=== PATIENT | female | born 1980 | race Caucasian/White ===

== ENCOUNTER 2017-05-09 11:22 | Inpatient (IN) | payer BC ==
[~2017-05-09] VITALS: Ht 167.6 cm; Wt 66.3 kg
[2017-05-09 12:18] LABS: URINE APPEARANCE CLOUDY (CLEAR); URINE BILIRUBIN NEG (NEG); URINE COLOR DK YELLOW; URINE EPITHELIAL CELL AUTO >30 /lpf (0-5); URINE NITRITE NEG (NEG); URINE SPECIFIC GRAVITY 1.026 (1.000-1.030); UROBILINOGEN NEG (NEG); ZZUR CULT IF INDIC CLEAN CATCH NO
[2017-05-09 12:20] LABS: MANUAL MICROSCOPIC REQUIRED? NO; REVIEW REQ? YES
[2017-05-09 12:33] LABS: BASO % 0.2 %; BASO ABS # 0.01 K/uL (0-0.2); COMPLETE YES; EOS % 0.3 %; HEMATOCRIT 45.8 % (37-47); IG% 0.2 %; LYMPH % 18.2 %; LYMPH ABS # 1.21 K/uL (1.2-3.4); MEAN CELL VOLUME 89.6 fL (80-100); MEAN CORPUSCULAR HEMOGLOBIN 30.7 pg (25-34); MEAN CORPUSCULAR HGB CONC 34.3 g/dl (32-36); MEAN PLATELET VOLUME 10.3 fL (7.4-10.4); MONO % 9.2 %; NEUT % 71.9 %; PLATELET COUNT 301 K/uL (130-400); RED BLOOD COUNT 5.11 M/uL (4.2-5.4); WHITE BLOOD COUNT 6.64 K/uL (4.8-10.8)
[2017-05-09 12:38] LABS: URINE MUCUS PRESENT (NONE PRSENT)
[2017-05-09 12:52] LABS: BENZODIAZEPINE, URINE NEG (NEG); COCAINE,URINE NEG (NEG); PHENCYCLIDINE, URINE NEG (NEG)
[2017-05-09 12:53] LABS: BUN/CREATININE RATIO 10.2 (10-20); CALCIUM 9.3 mg/dl (8.5-10.1); CREATININE 1.28 mg/dl (0.60-1.20); POTASSIUM 3.8 mmol/L (3.5-5.1)
[2017-05-09 12:55] LABS: ACETAMINOPHEN < 2 ug/ml (10-30)
[2017-05-09 13:04] LABS: ALB/GLOB RATIO 1.3 (0.9-2); THYROID STIMULATING HORMONE 2.05 uIu/ml (0.300-4.500)
[2017-05-09] MEDS ORDERED: BUPRTAB51 PO (14:16)
[2017-05-09] MEDS ORDERED: NURSING VERBAL MED ORDER ONE (14:30)
[2017-05-09 15:05] VITALS: O2SAT 97
[2017-05-09] MEDS ORDERED: ACETAMINOPHEN 325 MG TAB PO PRN (15:30)
[2017-05-09] MEDS ORDERED: ALUMINUM/MAGNESIUM SUSP 30 ML UDC PO PRN (15:30)
[2017-05-09] MEDS ORDERED: hydrOXYzine HCL 25 MG TAB PO PRN ×2 (15:30)
[2017-05-09] MEDS ORDERED: BISMUTH SUBSALICYLATE PER ML OMNICELL CHARGE PO PRN (15:30)
[2017-05-09] MEDS ORDERED: SODIUM CHLORIDE 0.65% NA SOLN 45 ML (OCEAN) PRN (15:30)
[2017-05-09] MEDS ORDERED: MAGNESIUM HYDROXIDE SUSP 30 ML UDC PO PRN (15:30)
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
[2017-05-09 17:03] VITALS: BP 131/88; PULSE 96; TEMP 36.8; Ht 167.6 cm; Wt 66.3 kg
[2017-05-10 06:51] VITALS: BP_SYST 105; BP_SYST 108; BP_DIAS 66; BP_DIAS 71; PULSE 82; PULSE 94; TEMP 36.9
[2017-05-10] MEDS: BuPROPion XL 300 MG TABCR PO SCH (08:44)
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
[2017-05-10] MEDS ORDERED: SERTRALINE HCL 50 MG TAB PO ONE (14:30)
[2017-05-11 06:48] VITALS: BP_SYST 116; BP_SYST 93; BP_DIAS 63; BP_DIAS 80; PULSE 81; PULSE 86; TEMP 36.9
[2017-05-11] MEDS: BuPROPion XL 300 MG TABCR PO SCH (09:19)
[2017-05-11] MEDS: SERTRALINE HCL 50 MG TAB PO SCH (09:19)
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
[2017-05-12 06:40] VITALS: BP_SYST 101; BP_SYST 106; BP_DIAS 67; BP_DIAS 69; PULSE 64; PULSE 76; TEMP 36.2
[2017-05-12] MEDS: BuPROPion XL 300 MG TABCR PO SCH (08:39)
[2017-05-12] MEDS: SERTRALINE HCL 50 MG TAB PO SCH (08:39)
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
[2017-05-13 06:54] VITALS: BP_SYST 109; BP_DIAS 68; BP_DIAS 69; PULSE 70; PULSE 97; TEMP 36.9
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
[2017-05-13] MEDS: SERTRALINE HCL 50 MG TAB PO SCH (08:50)
[2017-05-13] MEDS: BuPROPion XL 300 MG TABCR PO SCH (08:50)
[2017-05-14 07:11] VITALS: BP_SYST 101; BP_SYST 109; BP_DIAS 67; BP_DIAS 69; PULSE 66; PULSE 89; TEMP 36.8
[2017-05-14] MEDS: BuPROPion XL 300 MG TABCR PO SCH (08:35)
[2017-05-14] MEDS ORDERED: SERTRALINE HCL 100 MG TAB PO SCH (09:00)
[2017-05-14] MEDS ORDERED: ZLF/100 PO (11:52)
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
[2017-05-14 18:39] LABS: SYNTHETIC CANNABINOIDS QL URIN NEGATIVE (Negative)
== END 2017-05-14 16:15 | disposition home or self-care (01) | DRG 885 ==
LOC: C.EDB 11:24 → C.MHU 14:24
PROVIDERS: ADMIT Psychiatry & Neurology Psychiatry; ATTEND Psychiatry & Neurology Psychiatry
DX: F33.2 Major depressive disorder, recurrent severe without psychotic features (principal); R45.851 Suicidal ideations; F43.10 Post-traumatic stress disorder, unspecified; F10.20 Alcohol dependence, uncomplicated; Z79.899 Other long term (current) drug therapy

== ENCOUNTER 2017-05-15 17:47 | Emergency (ER) | payer BC ==
[~2017-05-15] VITALS: Ht 167.6 cm; Wt 66.7 kg
[~2017-05-15 17:47] MED LIST: BUPRTAB51 PO; ZLF/100 PO
[2017-05-15 18:03] VITALS: TEMP 36.8; Ht 167.6 cm; Wt 66.7 kg
--- NOTE | 2017-05-15 18:56 | EMERGENCY ROOM VISIT NOTE ---
History Report prepared by Lobo: Vinh Parsons Under the Supervision of: Dr. Audrey Rodriguez D.O. First contact with patient: 18:09 Chief Complaint: MENTAL HEALTH EVALUATION Stated Complaint: ANXIETY DEPRESSION History of Present Illness The patient is a 36 year old female who presents to the Emergency Room with complaints of worsening anxiety beginning yesterday. Case management states the patient was discharged from [facility] yesterday. They report the patient called back today and asked if she could have a work note for more days off. Case management notes the patient clams she is too anxious and will come to the ED to receive her note. The patient states she was originally supposed to be discharged today, but her insurance ran out, so she was discharged yesterday. She reports her early discharged provoked a large amount of anxiety. The patient notes she woke up this morning with a lot of anxiety and was not in a state where she could go back to work. She states her plan was to go back to work tomorrow, and she was off for three days. The patient reports she was told, at the time of discharge, to become involved with the community because she is new to the area. She notes she has a psychiatrist appointment in three weeks and a therapy appointment in five weeks. The patient states she is trying to get together with a friend on her days off. She reports she told her doctor she was not doing well, and they told her she needed an appointment. The patient notes she went to [facility], and she sat in a chair avoiding her medication. She states she does not know if she will benefit from hospitalization, and she knows she does not need to be alone because she lives alone. The patient reports she knows the idea of work is not possible. She notes she would have work of in 2 days and will try going to work in three days. The patient states she is not suicidal or trying to hurt herself , and she wants to stay like that. She reports she knows it will eventually get to the point. The patient notes she was not told how to cope with her anxiety because her treatment was focused on her depression. She denies medication side effects, and she is currently taking Zoloft 100HCl for anxiety. The patient denies suicidal ideations, homicidal ideations, and hallucinations Source of History: patient, other (case managment) Onset: yesterday Position: other (global) Quality: other (anxiety) Timing: worsening Note: Denies: suicidal ideation, homicidal ideations, hallucinations Review of Systems See HPI for pertinent positives & negatives. A total of 10 systems reviewed and were otherwise negative. Past Medical & Surgical Medical Problems: (1) Alcohol use disorder (2) Depression (3) diphenhydramine abuse (4) Major depressive disorder, recurrent severe without psychotic features (5) no pertinent medical problems (6) Past Psych Meds (7) PTSD (post-traumatic stress disorder) (8) Suicide attempt Family History Diabetes mellitus FH: breast cancer Gallbladder disease Heart disease Hypertension Kidney disease Kidney stones Seizures Social History Smoking Status: Current Every Day Smoker Marital Status: single Housing Status: lives alone Current/Historical Medications Scheduled Bupropion (Wellbutrin-Xl), 300 MG PO DAILY Sertraline HCl (Sertraline HCl), 100 MG PO QAM Allergies Coded Allergies: Sulfa Antibiotics (Unverified Allergy, Unknown, UNKNOWN, 05/15/17) Physical Exam Vital Signs Date Time Temp Pulse Resp B/P (MAP) Pulse Ox O2 Delivery O2 Flow Rate FiO2 05/15/17 20:21 80 18 127/85 98 05/15/17 18:38 170/99 05/15/17 18:03 36.8 98 20 96 Room Air Physical Exam GENERAL: alert, anxious-appearing, well nourished, tearful, non-toxic EYE EXAM: normal conjunctiva, PERRL and EOM's grossly intact OROPHARYNX: no exudate, no erythema, lips, buccal mucosa, and tongue normal and mucous membranes are moist NECK: supple, no nuchal rigidity, no adenopathy, non-tender LUNGS: Clear to auscultation. Normal chest wall mechanics HEART: no murmurs, S1 normal and S2 normal ABDOMEN: abdomen soft, non-tender, normo-active bowel sounds, no masses, no rebound or guarding. BACK: Back is symmetrical on inspection and there is no deformity, no midline tenderness, no CVA tenderness. SKIN: no rashes and no bruising UPPER EXTREMITIES: upper extremities are grossly normal. LOWER EXTREMITIES: No pitting edema. NEURO EXAM: Normal sensorium, cranial nerves II-XII grossly intact, normal speech, no gross weakness of arms, no gross weakness of legs. PSYCH: No SI. No HI. No hallucinations. Medical Decision & Procedures ED Course 1839: The patient was evaluated in room A06. A complete history and physical exam was performed. 193: Case management informed me the patient is cleared. She is ready for discharge. Medical Decision Differential diagnosis: Etiologies such as mood disorder, infection, hypoglycemia, electrolyte abnormalities, cardiac sources, intracerebral event, toxicologic, neurologic, as well as others were entertained. I do not feel patient's eminent danger to herself or others. Patient otherwise hemodynamically stable. No physical complaints. Medication Reconcilliation Current Medication List: was personally reviewed by me Impression Primary Impression: Acute anxiety Additional Impression: Depression Scribe Attestation The scribe's documentation has been prepared under my direction and personally reviewed by me in its entirety. I confirm that the note above accurately reflects all work, treatment, procedures, and medical decision making performed by me. Departure Information Dispostion Home / Self-Care Referrals Yemi Diaz MD (PCP) Forms HOME CARE DOCUMENTATION FORM, IMPORTANT VISIT INFORMATION Patient Instructions My [facility] Additional Instructions Please keep your appointments with your therapist and psychiatrist. Please continue your medications as prescribed. Please continue the coping mechanisms your previously instructed on. If you feel worse in any way, begin to have thoughts of wanting to hurt herself or someone else, or have any other new concerns, please return the emergency room. Problem Qualifiers Additional Impression: Depression Depression Type: unspecified Qualified Codes: F32.9 - Major depressive disorder, single episode, unspecified
[2017-05-15 20:21] VITALS: BP 127/85; PULSE 80; O2SAT 98
== END 2017-05-15 20:22 | disposition home or self-care (01) ==
LOC: C.EDB 17:48 → C.EDA 20:22
DX: F41.8 Other specified anxiety disorders (principal); F43.10 Post-traumatic stress disorder, unspecified; Z91.5 Personal history of self-harm; F17.200 Nicotine dependence, unspecified, uncomplicated; Z83.3 Family history of diabetes mellitus; Z83.79 Family history of other diseases of the digestive system; Z84.1 Family history of disorders of kidney and ureter; Z82.0 Family history of epilepsy and other diseases of the nervous system

== ENCOUNTER → 2017-07-09 | Outpatient (CLI) | payer BC ==
--- NOTE | 2017-07-09 15:52 | MAMMOGRAPHY REPORT ---
BILATERAL FIRST EVER DIGITAL SCREENING MAMMOGRAM TOMOSYNTHESIS WITH CAD: 07/09/2017 CLINICAL HISTORY: Baseline examination. Patient has no complaints. TECHNIQUE: Breast tomosynthesis in addition to standard 2D mammography was performed. Current study was also evaluated with a Computer Aided Detection (CAD) system. COMPARISON: No prior exams were available for comparison. BREAST COMPOSITION: The tissue of both breasts is heterogeneously dense, which may obscure small mas ses. FINDINGS: No suspicious masses, calcifications, or areas of architectural distortion are noted in ei ther breast. Scattered bilateral benign-appearing calcifications are noted. IMPRESSION: ACR BI-RADS CATEGORY 2: BENIGN There is no mammographic evidence of malignancy. A 1 year screening mammogram is recommended. The pa tient will receive written notification of the results. Approximately 10% of breast cancers are not detected with mammography. A negative mammographic report should not delay biopsy if a clinically suggestive mass is present. Kristyn Davidson M.D. /:07/09/2017 12:27:45 Cash Register Repairer: Charlette Chan, [facility] letter sent: Normal 1/2 BI-RADS Code: ACR BI-RADS Category 2: Benign
== END | disposition home or self-care (01) ==
LOC: C.MAMM 10:44
PROVIDERS: ATTEND Nurse Practitioner Family
DX: Z12.31 Encounter for screening mammogram for malignant neoplasm of breast (principal); Z80.3 Family history of malignant neoplasm of breast

== ENCOUNTER 2017-12-31 16:34 | Inpatient (IN) | payer BC ==
[~2017-12-31] VITALS: Ht 167.6 cm; Wt 68.8 kg
[2017-12-31] MEDS ORDERED: LORAZEPAM 1 MG TAB PO PRN (17:00)
--- NOTE | 2017-12-31 17:01 | EMERGENCY ROOM VISIT NOTE ---
History Report prepared by Lobo: Blayne Ansari Under the Supervision of: Dr. Ronaldo Ward D.O. First contact with patient: 16:35 Stated Complaint: MHID History of Present Illness The patient is a 37 year old female who presents to the Emergency Room via police with complaints of worsening depressive symptoms that began 5 weeks ago. Police state [employer] called them after the Sinha called them to perform a wellness check on the patient. Police state when they showed up at the patient' s home, the patient informed them that she tried to commit suicide yesterday by attaching a hose to her exhaust pipe and turning on her car. Police state the plan did not work because the car short-circuited. Police add that the patient tried to commit suicide today at her home but the cleaning crew was there. They add the patient broke down crying because the cleaning crew wouldn't leave. Police state the patient currently rents a home. Police state the patient recently quit her job at the [employer] after working there for 4 years. They state the patient states "she no longer has sympathy for people and is just going through the motions" at work. Police add the patient left letters for family members. Patient states she was recently living in an apartment whose landlord told her to move out in Mid-August. She states the move was upsetting because the landlord "renovated the place". She adds the landlord wanted her to move because the landlord's health was deteriorating and she wanted family to move in. Patient states she was also upset because the landlord made it seem more urgent than it was. Patient states the move was stressful because she had to move within a month. Patient states she does not like her roommates at her current apartment. She states she does not have any friends. Patient states she should would sometimes stay in the parking lot after work at the [employer] " crying for an hour". Patient adds that she has lost some of her friends recently. She states she lost a close friend recently which was "the hardest part" and after that she thought "what's the point" of living. Patient states yesterday afternoon she "took a bunch of Melatonin". She adds she had a scarf around her neck and was going to hang it from a pullup bar. She adds she put a trash bag over her head and fell asleep. She states she then woke up still breathing. Patient adds she sent the Sinha a letter of resignation with her name andrew, valentin marshall, and note saying "sorry for inconvenience but I can no longer provide excellent service". Patient states she also sent the letter of resignation to another person. Patient states she does not know who called police to come check on her. Patient states she took "5-6 500mg Tylenol" 2 hours ago. Patient states she was admitted for mental health in April here. She adds she was admitted in [place] in 2014 from job burn-out. She states she has been admitted previously for exploitive relationships. Patient states she stopped taking her medications in October. She states she is supposed to be taking Zoloft. Patient denies any other medical history or past surgeries. She denies using drugs or smoking. She states she is careful about her alcohol consumptions. Patient adds she is just coming off her last menstrual period. She states she wants to be admitted. Source of History: patient, police, nursing staff (manager of application development) Onset: 5 weeks ago Position: head Timing: worsening Modifying Factors (Worsening): other (Moving; losing friends) Modifying Factors (Relieving): other (None) Note: Positive SI. Review of Systems See HPI for pertinent positives & negatives. A total of 10 systems reviewed and were otherwise negative. Past Medical & Surgical Medical Problems: (1) Alcohol use disorder (2) Depression (3) diphenhydramine abuse (4) Major depressive disorder, recurrent severe without psychotic features (5) no pertinent medical problems (6) Past Psych Meds (7) PTSD (post-traumatic stress disorder) (8) Suicide attempt Family History Diabetes mellitus FH: breast cancer Gallbladder disease Heart disease Hypertension Kidney disease Kidney stones Seizures Social History Smoking Status: Former Smoker Marital Status: single Housing Status: lives alone Occupation Status: unemployed Current/Historical Medications No Active Prescriptions or Reported Meds Allergies Coded Allergies: Sulfa Antibiotics (Unverified Allergy, Unknown, UNKNOWN, 12/31/17) Physical Exam Vital Signs Date Time Temp Pulse Resp B/P (MAP) Pulse Ox O2 Delivery O2 Flow Rate FiO2 12/31/17 16:54 99 18 143/97 99 Room Air Physical Exam GENERAL: Patient is awake, alert, laughing inappropriately, and in no acute distress. Patient is resting comfortably and somewhat anxious-appearing EYES: The conjunctivae are clear. The pupils are round and reactive. EARS, NOSE, MOUTH AND THROAT: The nose is without any evidence of any deformity. Mucous membranes are moist. Tongue is midline NECK: The neck is nontender and supple. RESPIRATORY: Normal respiratory effort is noted. There is no evidence of wheezing rhonchi or rales to auscultation. CARDIOVASCULAR: Regular rate and rhythm noted. There no murmurs rubs or gallops normal S1 normal S2 GASTROINTESTINAL: The abdomen is soft. Bowel sounds are present in all quadrants. Abdomen is nontender. MUSCULOSKELETAL/EXTREMITIES: There is no evidence of gross deformity. Full range of motion is noted in the hips and shoulders. SKIN: There is no obvious evidence of any rash. There are no petechiae, pallor or cyanosis noted. NEUROLOGIC: Patient is awake alert and oriented x3. Strength is symmetric. Patellar reflexes are 2+ bilaterally. PSYCH: Patient appears anxious and guarded. Poor eye contact. Currently admits to SI and admits to actions discussed with us and police. Admits to taking Tylenol 2 hours ago. Medical Decision & Procedures Laboratory Results 12/31/17 17:31 Red Blood Count 4.88, Mean Corpuscular Volume 89.8, Mean Corpuscular Hemoglobin 29.7, Mean Corpuscular Hemoglobin Concent 33.1, Mean Platelet Volume 10.8, Neutrophils (%) (Auto) 67.5, Lymphocytes (%) (Auto) 22.2, Monocytes (%) (Auto) 8.6, Eosinophils (%) (Auto) 1.1, Basophils (%) (Auto) 0.4, Neutrophils # (Auto) 3.53, Lymphocytes # (Auto) 1.16, Monocytes # (Auto) 0.45, Eosinophils # (Auto) 0.06, Basophils # (Auto) 0.02 12/31/17 17:31 Test 12/31/17 16:40 12/31/17 17:31 12/31/17 18:55 Urine Color DK YELLOW Urine Appearance CLOUDY (CLEAR) Urine pH 5.0 (4.5-7.5) Urine Specific Forks 1.034 (1.000-1.030) Urine Protein TRACE (NEG) Urine Glucose (UA) NEG (NEG) Urine Ketones TRACE (NEG) Urine Occult Blood 2+ (NEG) Urine Nitrite NEG (NEG) Urine Bilirubin NEG (NEG) Urine Urobilinogen NEG (NEG) Urine Leukocyte Esterase NEG (NEG) Urine WBC (Auto) 1-5 /hpf (0-5) Urine RBC (Auto) 0-4 /hpf (0-4) Urine Hyaline Casts (Auto) 5-10 /lpf (0-5) Urine Epithelial Cells (Auto) >30 /lpf (0-5) Urine Bacteria (Auto) NEG (NEG) Urine Crystals CALCIUM OXALATE (NONE Urine Test NEG (NEG) Urine Opiates Screen NEG (NEG) Urine Methadone, Qualitative NEG (NEG) Urine Barbiturates NEG (NEG) Urine Phencyclidine (PCP) Level NEG (NEG) Ur Amphetamine/Methamphetamine NEG (NEG) MDMA (Ecstasy) Screen NEG (NEG) Urine Benzodiazepines Screen NEG (NEG) Urine Cocaine Metabolite NEG (NEG) Urine Marijuana (THC) NEG (NEG) White Blood Count 5.23 K/uL (4.8-10.8) Red Blood Count 4.88 M/uL (4.2-5.4) Hemoglobin 14.5 g/dL (12.0-16.0) Hematocrit 43.8 % (37-47) Mean Corpuscular Volume 89.8 fL (80-100) Mean Corpuscular Hemoglobin 29.7 pg (25-34) Mean Corpuscular Hemoglobin Concent 33.1 g/dl (32-36) Platelet Count 297 K/uL (130-400) Mean Platelet Volume 10.8 fL (7.4-10.4) Neutrophils (%) (Auto) 67.5 % Lymphocytes (%) (Auto) 22.2 % Monocytes (%) (Auto) 8.6 % Eosinophils (%) (Auto) 1.1 % Basophils (%) (Auto) 0.4 % Neutrophils # (Auto) 3.53 K/uL (1.4-6.5) Lymphocytes # (Auto) 1.16 K/uL (1.2-3.4) Monocytes # (Auto) 0.45 K/uL (0.11-0.59) Eosinophils # (Auto) 0.06 K/uL (0-0.5) Basophils # (Auto) 0.02 K/uL (0-0.2) RDW Standard Deviation 40.8 fL (36.4-46.3) RDW Coefficient of Variation 12.4 % (11.5-14.5) Immature Granulocyte % (Auto) 0.2 % Immature Granulocyte # (Auto) 0.01 K/uL (0.00-0.02) Anion Gap 7.0 mmol/L (3-11) Est Creatinine Clear Calc Drug Dose 69.2 ml/min Estimated GFR () 70.6 Estimated GFR (Non- 61.0 BUN/Creatinine Ratio 14.1 (10-20) Calcium Level 8.9 mg/dl (8.5-10.1) Total Bilirubin 0.6 mg/dl (0.2-1) Direct Bilirubin 0.2 mg/dl (0-0.2) Aspartate Amino Transf (AST/SGOT) 12 U/L (15-37) Alanine Aminotransferase (ALT/SGPT) 17 U/L (12-78) Alkaline Phosphatase 62 U/L (45-117) Total Protein 7.5 gm/dl (6.4-8.2) Albumin 4.2 gm/dl (3.4-5.0) Thyroid Stimulating Hormone (TSH) 1.890 uIu/ml (0.300-4.500) Salicylates Level < 1.7 mg/dl (2.8-20) Ethyl Alcohol mg/dL < 3.0 mg/dl (0-3) Acetaminophen Level 26 ug/ml (10-30) Laboratory results per my review. ED Course 1641: The patient was evaluated in room A6. A complete history and physical examination were performed. 1936: Fredrick lundy is coming down to talk to the patient. 2002: Upon reevaluation, the patient will be further evaluated by Fredrick lundy. I discussed results and treatment plan with her. She verbalizes agreement and understanding. The patient will be evaluated for further management and care. Medical Decision Differential diagnosis: Etiologies such as mood disorder, infection, hypoglycemia, electrolyte abnormalities, cardiac sources, intracerebral event, toxicologic, neurologic, as well as others were entertained. Nursing notes reviewed. Additional history is obtained from the police. The patient is a 37-year-old female who presented to the emergency department with significant depression and suicidal ideation. The patient had multiple suicide notes that she had written. She had a significant suicidal gesture which was described by the police. The patient was medically cleared in the emergency department. She was willing to be evaluated for inpatient treatment for mental health evaluation and treatment. The patient was evaluated by the mental health classification case manager. She was felt to be a good candidate for admission to [facility]. She was seen by the [facility]. delegate and was admitted for inpatient voluntary mental health treatment. The patient was offered medication for anxiety but she did not wish to have any at this time. Medication Reconcilliation Current Medication List: was personally reviewed by me Blood Pressure Screening Patient's blood pressure: Normal blood pressure Blood pressure disposition: Did not require urgent referral Impression Primary Impression: Depression Additional Impression: Suicidal ideation Scribe Attestation The scribe's documentation has been prepared under my direction and personally reviewed by me in its entirety. I confirm that the note above accurately reflects all work, treatment, procedures, and medical decision making performed by me. Departure Information Dispostion Transfer Acute Care Facility ([address] [place] [address]) Prescriptions No Active Prescriptions or Reported Meds Referrals Yemi Diaz MD (PCP) Forms HOME CARE DOCUMENTATION FORM, IMPORTANT VISIT INFORMATION Patient Instructions My [facility] Problem Qualifiers Primary Impression: Depression Depression Type: unspecified Qualified Codes: F32.9 - Major depressive disorder, single episode, unspecified
[2017-12-31 17:57] LABS: BASO % 0.4 %; BASO ABS # 0.02 K/uL (0-0.2); EOS % 1.1 %; EOS ABS # 0.06 K/uL (0-0.5); HEMATOCRIT 43.8 % (37-47); HEMOGLOBIN 14.5 g/dL (12.0-16.0); IG# 0.01 K/uL (0.00-0.02); LYMPH % 22.2 %; LYMPH ABS # 1.16 K/uL (1.2-3.4); MEAN CELL VOLUME 89.8 fL (80-100); MEAN CORPUSCULAR HEMOGLOBIN 29.7 pg (25-34); MEAN CORPUSCULAR HGB CONC 33.1 g/dl (32-36); MEAN PLATELET VOLUME 10.8 fL (7.4-10.4); MONO % 8.6 %; MONO ABS # 0.45 K/uL (0.11-0.59); NEUT % 67.5 %; NEUT ABS # 3.53 K/uL (1.4-6.5); PLATELET COUNT 297 K/uL (130-400); RED CELL DISTRIBUTION WIDTH CV 12.4 % (11.5-14.5); RED CELL DISTRIBUTION WIDTH SD 40.8 fL (36.4-46.3); WHITE BLOOD COUNT 5.23 K/uL (4.8-10.8)
[2017-12-31 18:24] LABS: ALBUMIN 4.2 gm/dl (3.4-5.0); CALCIUM 8.9 mg/dl (8.5-10.1); CREATININE 1.16 mg/dl (0.60-1.20); POTASSIUM 3.7 mmol/L (3.5-5.1); TOTAL PROTEIN 7.5 gm/dl (6.4-8.2)
[2017-12-31 20:26] VITALS: O2SAT 97
[2017-12-31] MEDS ORDERED: BISMUTH SUBSALICYLATE PER ML OMNICELL CHARGE PO PRN (20:30)
[2017-12-31] MEDS ORDERED: MAGNESIUM HYDROXIDE SUSP 30 ML UDC PO PRN (20:30)
[2017-12-31] MEDS ORDERED: ALUMINUM/MAGNESIUM SUSP 30 ML UDC PO PRN (20:30)
[2017-12-31] MEDS ORDERED: ACETAMINOPHEN 325 MG TAB PO PRN (20:30)
[2017-12-31] MEDS ORDERED: hydrOXYzine HCL 25 MG TAB PO PRN (20:30)
[2017-12-31] MEDS ORDERED: SODIUM CHLORIDE 0.65% NA SOLN 45 ML (OCEAN) PRN (20:30)
[2017-12-31 20:48] VITALS: BP 125/67; PULSE 75; TEMP 37; BMI 24.5
[2017-12-31] MEDS: hydrOXYzine HCL 25 MG TAB PO PRN (22:56)
[2018-01-01 06:57] VITALS: BP_SYST 91; BP_SYST 96; BP_DIAS 61; BP_DIAS 64; PULSE 51; PULSE 81; TEMP 36.6
[2018-01-01 06:58] VITALS: Ht 167.6 cm; Wt 68.8 kg
[2018-01-01] MEDS ORDERED: SERTRALINE HCL 50 MG TAB PO ONE (12:06)
[2018-01-01] MEDS ORDERED: BuPROPion XL 150 MG TABCR PO ONE (12:06)
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
[2018-01-01] MEDS: hydrOXYzine HCL 25 MG TAB PO PRN (22:47)
[2018-01-02] MEDS: hydrOXYzine HCL 25 MG TAB PO PRN ×2 (00:33→22:47)
[2018-01-02 06:59] VITALS: BP_SYST 101; BP_SYST 82; BP_DIAS 50; BP_DIAS 70; PULSE 56; PULSE 72; TEMP 36.6
[2018-01-02] MEDS: BuPROPion XL 150 MG TABCR PO SCH (09:09)
[2018-01-02] MEDS: SERTRALINE HCL 50 MG TAB PO SCH (09:09)
--- NOTE | 2018-01-02 13:11 | Psychiatric Progress Notes ---
Progress Note Date of Service Jan 02, 2018. Interval History Milagro Montgomery is a 37-year-old female admitted voluntarily on Dec 31, 2017 after being brought to the emergency department by police with severe depression and reports of multiple suicide attempts. Chief Complaint "Fluctuating ". Subjective Patient was seen & assessed interval progress reviewed with Treatment Team. Staff reports she has been attending and participating in groups. On my assessment, she states that mood has been mostly "flat lined, I do not care, apathetic," other than a period of "agitation" last night, during which she sad and wrote down her feelings, which she plans to process with the counselor today. She continues to have suicidal thoughts, but states she is safe on the unit, "I am not looking around the room for ways to hurt myself." She states that the police took her stockpile of medications that she was going to use to commit suicide, and she thinks they should be here at the hospital. She continues to endorse hopelessness, stating that she does not see how she can move from her current mindset of wanting to be to wanting to be alive and making plans for the future. Review of Systems Reports diarrhea this morning, denies nausea, vomiting, SHAH, pain. Sleep Information Total Hours of Sleep: 6.00 Meal Information Percent of Breakfast Consumed: 100 Percent of Lunch Consumed: 100 Percent of Dinner Consumed: 100 Mental Status Exam During interview pt is: alert and oriented, cooperative Appearance: appropriately dressed, appropriately groomed Eye contact is: good Motor behavior is: steady gait & station, no abnormal motor movements Speech: normal in rate, rhythm & volume Affect: mood congruent, depressed Mood is: depressed Thought process: goal directed Thought content: reality based without delusions Suicidal thought are: present, Plan: present, Intent: present (Able to contract for safety on the unit, but not outside the hospital.) Homicidal thoughts are: denied Hallucinations: denies auditory, denies visual Cognition: memory grossly intact, attention grossly intact, language grossly intact Intelligence estimated to be: average Insight: impaired Judgement: impaired Impression 37-year-old woman admitted voluntarily with severe depression and suicide attempts. She is known to us from her previous admission. She reports previous good effect on sertraline and bupropion, which were resumed on admission as she had been noncompliant with them for the past 2 months. We have also recommended that she return to therapy and follow up with a psychiatric provider. Inpatient mental health treatment is medically necessary due to the severity of her condition and the risk for suicide if discharged. Plan (1) Major depressive disorder, recurrent severe without psychotic features 01/01 - Restart Zoloft 50 mg. daily and Wellbutrin XL 150 mg daily - Recommend follow up with a psychiatric prescriber - Recommend return to therapy - Q 15 min checks for safety - Encourage participation in group and individual counseling - Explore the diagnosis of Borderline Personality Disorder - Family meeting if indicated 01/02 -Continue sertraline 50 mg daily and bupropion XL 150 mg daily, monitor diarrhea as it may be a side effect. Encourage patient to take medications with food. -Refer for outpatient therapy and psychiatric care. -Explore options for a family meeting. -Safety planning: Patient states that the police brought in her stockpile of medications; we will need to determine whether there are excess medications that need to be disposed of, and may return a limited supply to her at discharge. (2) Cluster B personality disorder in adult 01/01 - Patient with significant relationship problems, given her history - Explore with the patient Discharge / Aftercare Planning Therapist: Name: Debbie Window And Door Installer: Name: None Visit Code E&M Code: 04139 Inventory Assets Strengths: Intelligence, willingness to engage in treatment Needs: To be in psychiatric care Risk Factors Assessment : Yes /single/: Yes Higher / Fall in social status: No Health problems: No Mental Health Diagnoses: Yes Substance use disorders: No Family history of suicide: No Previous psychiatric stay: Yes Hopelessness: Yes Smoker: No Protective Factors Assessment Mu-Ism beliefs: Yes : No Responsible for young children: No Employed: No Stable relationships: No Supportive family: No Data Vital Signs Last 24 Hrs: Date Time Temp Pulse Resp B/P (MAP) Pulse Ox O2 Delivery O2 Flow Rate FiO2 01/02/18 06:59 36.6 56 16 82/50 72 101/70 Meds Administered Last 24 Hrs: Meds Administered (Past 24Hrs) Medications (Trade) Dose Ordered Sig/Nila Route Start Time Stop Time Status Last Admin Dose Admin Hydroxyzine HCl (Vistaril Tab) 50 mg HSZ PRN PO 12/31/17 20:30 01/30/18 20:29 01/02/18 00:33 50 MG Sertraline HCl (Zoloft Tab) 50 mg QAM PO 01/02/18 09:00 02/01/18 08:59 01/02/18 09:09 50 MG Sertraline HCl (Zoloft Tab) 50 mg 1206 ONCE PO 01/01/18 12:06 01/01/18 12:31 DC 01/01/18 12:48 50 MG Bupropion HCl (Wellbutrin-Xl Tab) 150 mg QAM PO 01/02/18 09:00 02/01/18 08:59 01/02/18 09:09 150 MG Bupropion HCl (Wellbutrin-Xl Tab) 150 mg 1206 ONCE PO 01/01/18 12:06 01/01/18 12:31 DC 01/01/18 12:48 150 MG
[2018-01-03 07:01] VITALS: BP_SYST 103; BP_SYST 91; BP_DIAS 52; BP_DIAS 71; PULSE 61; PULSE 80; TEMP 36.7
[2018-01-03] MEDS: SERTRALINE HCL 50 MG TAB PO SCH (09:12)
[2018-01-03] MEDS: BuPROPion XL 150 MG TABCR PO SCH (09:12)
--- NOTE | 2018-01-03 09:49 | Psychiatric Progress Notes ---
Progress Note Date of Service Jan 03, 2018. Interval History Milagro Montgomery is a 37-year-old female admitted voluntarily on Dec 31, 2017 after being brought to the emergency department by police with severe depression and reports of multiple suicide attempts. Chief Complaint "Getting better!". Subjective Patient was seen & assessed interval progress reviewed with Treatment Team. Today she says that she is "Getting Better" and feels that she is beginning to see a purpose for her life. She has been spending time "trying to find out what 's going on". 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 She did not like that it ended by email, and that she had no input into it. She says that she tried to contact her on December 09, left a message, but never heard anything back indicating that "that door is closed". She denies SI today and, remarkably, is smiling broadly. She hesitates and stumbles verbally as she tries to explain that she had "a dumb thought" last evening in which she had images of barricading herself in her room and wrapping a "sheet around my head", but did not act on it. When asked how she could divert herself from such thoughts since she recognized they were "dumb", she was only able to say that she could get up and leave the room. She still hasn' t made decisions about what comes next after discharge, and has been talking with staff about the possibility of moving away since there is really nothing to keep her here. She asks about her meds for discharge and about whether she will have the right dose since her home supply may be different. I informed her that we would only send her with a small supply at discharge to prevent overdose. Review of Systems Constitutional: No fever, No chills, No sweats, No weight loss, No weakness, No fatigue, No problem reported ENT: No hearing loss, No unusual epistaxis, No nasal symptoms, No sore throat, No tinnitus, No dental problems, No trouble swallowing, No problem reported Respiratory: No cough, No sputum, No wheezing, No shortness of breath, No dyspnea on exertion, No dyspnea at rest, No hemoptysis, No problem reported Cardiovascular: No chest pain, No orthopnea, No PND, No edema, No claudication , No palpitations, No problem reported Abdomen: No pain, No nausea, No vomiting, No diarrhea, No constipation, No GI bleeding, No problem reported Musculoskeletal: No joint pain, No muscle pain, No swelling, No calf pain, No problem reported Neurologic: No memory loss, No paralysis, No weakness, No numbness/tingling, No vertigo, No balance problems, No problem reported Psychiatric: + depression symptoms (but no SI) Integumentary: No rash, No itch, No new/changing skin lesions, No color change , No bleeding, No problem reported Sleep Information Total Hours of Sleep: 5.50 Meal Information Percent of Breakfast Consumed: 100 Percent of Lunch Consumed: 100 Percent of Dinner Consumed: 100 Mental Status Exam During interview pt is: alert and oriented, cooperative Appearance: appropriately dressed, appropriately groomed Eye contact is: good Motor behavior is: steady gait & station, no abnormal motor movements Speech: normal in rate, rhythm & volume Affect: mood congruent, depressed Mood is: depressed Thought process: goal directed Thought content: reality based without delusions Suicidal thought are: denied Homicidal thoughts are: denied Hallucinations: denies auditory, denies visual Cognition: memory grossly intact, attention grossly intact, language grossly intact Intelligence estimated to be: average Insight: impaired Judgement: impaired Impression Some improvement to her mood and processing events leading to hospitalization. Starting to acknowledge the degree of hurt she feels over the loss of her friend Korina, but not able yet to talk about her part in that. Today will increase Zoloft to 100 mg. daily, continue Wellbutrin. Plan (1) Major depressive disorder, recurrent severe without psychotic features 01/01 - Restart Zoloft 50 mg. daily and Wellbutrin XL 150 mg daily - Recommend follow up with a psychiatric prescriber - Recommend return to therapy - Q 15 min checks for safety - Encourage participation in group and individual counseling - Explore the diagnosis of Borderline Personality Disorder - Family meeting if indicated 01/02 -Continue sertraline 50 mg daily and bupropion XL 150 mg daily, monitor diarrhea as it may be a side effect. Encourage patient to take medications with food. -Refer for outpatient therapy and psychiatric care. -Explore options for a family meeting. -Safety planning: Patient states that the police brought in her stockpile of medications; we will need to determine whether there are excess medications that need to be disposed of, and may return a limited supply to her at discharge. 01/03 - Increased Zoloft to 100 mg. daily - Continue to explore healthy coping strategies (2) Cluster B personality disorder in adult 01/01 - Patient with significant relationship problems, given her history - Explore with the patient Discharge / Aftercare Planning Therapist: Name: Debbie Enamel Dipper: Name: None Visit Code E&M Code: 83033 Inventory Assets Strengths: Intelligence, willingness to engage in treatment Needs: To be in psychiatric care Risk Factors Assessment : Yes /single/: Yes Higher / Fall in social status: No Health problems: No Mental Health Diagnoses: Yes Substance use disorders: No Family history of suicide: No Previous psychiatric stay: Yes Hopelessness: Yes Smoker: No Protective Factors Assessment Catholic beliefs: Yes : No Responsible for young children: No Employed: No Stable relationships: No Supportive family: No Data Vital Signs Last 24 Hrs: Date Time Temp Pulse Resp B/P (MAP) Pulse Ox O2 Delivery O2 Flow Rate FiO2 01/03/18 07:01 36.7 61 16 91/52 80 103/71 Meds Administered Last 24 Hrs: Meds Administered (Past 24Hrs) Medications (Trade) Dose Ordered Sig/Nila Route Start Time Stop Time Status Last Admin Dose Admin Sertraline HCl (Zoloft Tab) 50 mg QAM PO 01/02/18 09:00 02/01/18 08:59 01/03/18 09:12 50 MG Sertraline HCl (Zoloft Tab) 50 mg 1206 ONCE PO 01/01/18 12:06 01/01/18 12:31 DC 01/01/18 12:48 50 MG Bupropion HCl (Wellbutrin-Xl Tab) 150 mg QAM PO 01/02/18 09:00 02/01/18 08:59 01/03/18 09:12 150 MG Bupropion HCl (Wellbutrin-Xl Tab) 150 mg 1206 ONCE PO 01/01/18 12:06 01/01/18 12:31 DC 01/01/18 12:48 150 MG Lab Results Last 24 Hrs: 12/31/17 17:31 Red Blood Count 4.88, Mean Corpuscular Volume 89.8, Mean Corpuscular Hemoglobin 29.7, Mean Corpuscular Hemoglobin Concent 33.1, Mean Platelet Volume 10.8, Neutrophils (%) (Auto) 67.5, Lymphocytes (%) (Auto) 22.2, Monocytes (%) (Auto) 8.6, Eosinophils (%) (Auto) 1.1, Basophils (%) (Auto) 0.4, Neutrophils # (Auto) 3.53, Lymphocytes # (Auto) 1.16, Monocytes # (Auto) 0.45, Eosinophils # (Auto) 0.06, Basophils # (Auto) 0.02 12/31/17 17:31 Test 12/31/17 16:40 12/31/17 17:31 12/31/17 18:55 Urine Color DK YELLOW Urine Appearance CLOUDY (CLEAR) Urine pH 5.0 (4.5-7.5) Urine Specific [place] 1.034 (1.000-1.030) Urine Protein TRACE (NEG) Urine Glucose (UA) NEG (NEG) Urine Ketones TRACE (NEG) Urine Occult Blood 2+ (NEG) Urine Nitrite NEG (NEG) Urine Bilirubin NEG (NEG) Urine Urobilinogen NEG (NEG) Urine Leukocyte Esterase NEG (NEG) Urine WBC (Auto) 1-5 /hpf (0-5) Urine RBC (Auto) 0-4 /hpf (0-4) Urine Hyaline Casts (Auto) 5-10 /lpf (0-5) Urine Epithelial Cells (Auto) >30 /lpf (0-5) Urine Bacteria (Auto) NEG (NEG) Urine Crystals CALCIUM OXALATE (NONE Urine Test NEG (NEG) Urine Opiates Screen NEG (NEG) Urine Methadone, Qualitative NEG (NEG) Urine Barbiturates NEG (NEG) Urine Phencyclidine (PCP) Level NEG (NEG) Ur Amphetamine/Methamphetamine NEG (NEG) MDMA (Ecstasy) Screen NEG (NEG) Urine Benzodiazepines Screen NEG (NEG) Urine Cocaine Metabolite NEG (NEG) Urine Marijuana (THC) NEG (NEG) White Blood Count 5.23 K/uL (4.8-10.8) Red Blood Count 4.88 M/uL (4.2-5.4) Hemoglobin 14.5 g/dL (12.0-16.0) Hematocrit 43.8 % (37-47) Mean Corpuscular Volume 89.8 fL (80-100) Mean Corpuscular Hemoglobin 29.7 pg (25-34) Mean Corpuscular Hemoglobin Concent 33.1 g/dl (32-36) Platelet Count 297 K/uL (130-400) Mean Platelet Volume 10.8 fL (7.4-10.4) Neutrophils (%) (Auto) 67.5 % Lymphocytes (%) (Auto) 22.2 % Monocytes (%) (Auto) 8.6 % Eosinophils (%) (Auto) 1.1 % Basophils (%) (Auto) 0.4 % Neutrophils # (Auto) 3.53 K/uL (1.4-6.5) Lymphocytes # (Auto) 1.16 K/uL (1.2-3.4) Monocytes # (Auto) 0.45 K/uL (0.11-0.59) Eosinophils # (Auto) 0.06 K/uL (0-0.5) Basophils # (Auto) 0.02 K/uL (0-0.2) RDW Standard Deviation 40.8 fL (36.4-46.3) RDW Coefficient of Variation 12.4 % (11.5-14.5) Immature Granulocyte % (Auto) 0.2 % Immature Granulocyte # (Auto) 0.01 K/uL (0.00-0.02) Anion Gap 7.0 mmol/L (3-11) Est Creatinine Clear Calc Drug Dose 69.2 ml/min Estimated GFR () 70.6 Estimated GFR (Non- 61.0 BUN/Creatinine Ratio 14.1 (10-20) Calcium Level 8.9 mg/dl (8.5-10.1) Total Bilirubin 0.6 mg/dl (0.2-1) Direct Bilirubin 0.2 mg/dl (0-0.2) Aspartate Amino Transf (AST/SGOT) 12 U/L (15-37) Alanine Aminotransferase (ALT/SGPT) 17 U/L (12-78) Alkaline Phosphatase 62 U/L (45-117) Total Protein 7.5 gm/dl (6.4-8.2) Albumin 4.2 gm/dl (3.4-5.0) Thyroid Stimulating Hormone (TSH) 1.890 uIu/ml (0.300-4.500) Salicylates Level < 1.7 mg/dl (2.8-20) Ethyl Alcohol mg/dL < 3.0 mg/dl (0-3) Acetaminophen Level 26 ug/ml (10-30)
[2018-01-04 06:49] VITALS: BP_SYST 102; BP_SYST 96; BP_DIAS 61; BP_DIAS 65; PULSE 58; PULSE 82; TEMP 36.6
[2018-01-04] MEDS: BuPROPion XL 150 MG TABCR PO SCH (09:42)
[2018-01-04] MEDS: SERTRALINE HCL 100 MG TAB PO SCH (09:43)
--- NOTE | 2018-01-04 11:34 | Psychiatric Progress Notes ---
Progress Note Date of Service Jan 04, 2018. Interval History Milagro Montgomery is a 37-year-old female admitted voluntarily on Dec 31, 2017 after being brought to the emergency department by police with severe depression and reports of multiple suicide attempts. Chief Complaint "The same, still suicidal". Subjective Patient was seen & assessed interval progress reviewed with Treatment Team. Pt was seen today to assess progress since admission. She states she has not noticed much improvement in mood and remains suicidal, reporting that she feels there is "no purpose." Pt shares with this provider that she has determined she will remain in [place] after discharge, as "I don't know where else I would go." She reports some difficulty with sleep due to roommate tossing and turning. Pt denies side effects with medication initiation and changes. She continues to feel hopeless and helpless, but engages in group programming. Review of Systems Psych: denies symptoms other than stated above Constitutional: reports fatigue today Cardiovascular: denied GI: denied Neurologic: denied Remainder of 10 body systems also reviewed and denied other than noted above. Sleep Information Total Hours of Sleep: 5.50 Meal Information Percent of Breakfast Consumed: 100 Percent of Lunch Consumed: 100 Percent of Dinner Consumed: 100 Mental Status Exam During interview pt is: alert and oriented, cooperative Appearance: appropriately dressed, appropriately groomed Eye contact is: good Motor behavior is: steady gait & station, no abnormal motor movements Speech: other (normal rate and rhythm, low volume) Affect: mood congruent, depressed Mood is: depressed, other ("the same") Thought process: goal directed Thought content: reality based without delusions Suicidal thought are: present ("still suicidal, still not seeing much purpose") Homicidal thoughts are: denied Hallucinations: denies auditory, denies visual Cognition: memory grossly intact, attention grossly intact, language grossly intact Intelligence estimated to be: average Insight: impaired Judgement: impaired Impression Pt reports ongoing depressive feelings, states she continues to feel suicidal and that there is no purpose. States her mood has not been improving. Zoloft recently increased to 100mg, will plan to continue Wellbutrin. Pt requires ongoing inpatient treatment due to admission of ongoing suicidal thoughts, especially given her attempts and detailed suicide plan prior to admission. Plan (1) Major depressive disorder, recurrent severe without psychotic features 01/01 - Restart Zoloft 50 mg. daily and Wellbutrin XL 150 mg daily - Recommend follow up with a psychiatric prescriber - Recommend return to therapy - Q 15 min checks for safety - Encourage participation in group and individual counseling - Explore the diagnosis of Borderline Personality Disorder - Family meeting if indicated 01/02 -Continue sertraline 50 mg daily and bupropion XL 150 mg daily, monitor diarrhea as it may be a side effect. Encourage patient to take medications with food. -Refer for outpatient therapy and psychiatric care. -Explore options for a family meeting. -Safety planning: Patient states that the police brought in her stockpile of medications; we will need to determine whether there are excess medications that need to be disposed of, and may return a limited supply to her at discharge. 01/03 - Increased Zoloft to 100 mg. daily - Continue to explore healthy coping strategies 01/04 - Continue Zoloft 100mg and Wellbutrin 150mg (2) Cluster B personality disorder in adult 01/01 - Patient with significant relationship problems, given her history - Explore with the patient Discharge / Aftercare Planning Therapist: Name: None Production Technologist: Name: None Visit Code E&M Code: 54355 Inventory Assets Strengths: Intelligence, willingness to engage in treatment Needs: To be in psychiatric care Risk Factors Assessment : Yes /single/: Yes Higher / Fall in social status: No Health problems: No Mental Health Diagnoses: Yes Substance use disorders: No Family history of suicide: No Previous psychiatric stay: Yes Hopelessness: Yes Smoker: No Protective Factors Assessment Judaism beliefs: Yes : No Responsible for young children: No Employed: No Stable relationships: No Supportive family: No Data Vital Signs Last 24 Hrs: Date Time Temp Pulse Resp B/P (MAP) Pulse Ox O2 Delivery O2 Flow Rate FiO2 01/04/18 06:49 36.6 58 16 102/65 82 96/61 Meds Administered Last 24 Hrs: Meds Administered (Past 24Hrs) Medications (Trade) Dose Ordered Sig/Nila Route Start Time Stop Time Status Last Admin Dose Admin Sertraline HCl (Zoloft Tab) 100 mg QAM PO 01/04/18 09:00 02/03/18 08:59 01/04/18 09:43 100 MG
[2018-01-04] MEDS: hydrOXYzine HCL 25 MG TAB PO PRN (21:29)
[2018-01-05 06:59] VITALS: BP_SYST 103; BP_SYST 105; BP_DIAS 61; BP_DIAS 64; PULSE 60; PULSE 79; TEMP 36.6
[2018-01-05] MEDS: SERTRALINE HCL 100 MG TAB PO SCH (08:57)
[2018-01-05] MEDS: BuPROPion XL 150 MG TABCR PO SCH (08:57)
--- NOTE | 2018-01-05 14:05 | Psychiatric Progress Notes ---
Progress Note Date of Service Jan 05, 2018. Interval History Milagro Montgomery is a 37-year-old female admitted voluntarily on Dec 31, 2017 after being brought to the emergency department by police with severe depression and reports of multiple suicide attempts. Chief Complaint "I feel a little more clear and I'm experiencing some emotions again". Subjective Patient was seen & assessed interval progress reviewed with Treatment Team. No acute events overnight. Pt reports small interval improvement in mood today but still hopeless and suicidal. She describes increased emotional experience as compared to numbness and is finding therapeutic sessions helpful. Still "coming up with ends." Describes small improvement in clarity of thinking. Asks if she could increase wellbutrin. Reviewed she had previously been tx w/ 300mg daily dose in combination w/ zoloft. Denies feeling very anxious acutely. Review of Systems Constitutional: + fatigue Psychiatric: + depression symptoms, No anxiety Sleep Information Total Hours of Sleep: 6.75 Meal Information Percent of Breakfast Consumed: 100 Percent of Lunch Consumed: 50 Percent of Dinner Consumed: 95 Mental Status Exam During interview pt is: alert and oriented, cooperative Appearance: appropriately dressed, appropriately groomed Eye contact is: good Motor behavior is: steady gait & station, no abnormal motor movements Speech: other (soft, slow) Affect: mood congruent, depressed Mood is: depressed, other Thought process: goal directed, other (very mild slowing) Thought content: reality based without delusions Suicidal thought are: present, Intent: denied Homicidal thoughts are: denied Hallucinations: denies auditory, denies visual Cognition: memory grossly intact, attention grossly intact, language grossly intact Intelligence estimated to be: average Insight: impaired Judgement: impaired Impression Pt reports ongoing depressive feelings, states she continues to feel suicidal and that there is no purpose. States her mood has not been improving. Zoloft recently increased to 100mg, will plan to continue Wellbutrin. Pt requires ongoing inpatient treatment due to admission of ongoing suicidal thoughts, especially given her attempts and detailed suicide plan prior to admission. Plan (1) Major depressive disorder, recurrent severe without psychotic features 01/01 - Restart Zoloft 50 mg. daily and Wellbutrin XL 150 mg daily - Recommend follow up with a psychiatric prescriber - Recommend return to therapy - Q 15 min checks for safety - Encourage participation in group and individual counseling - Explore the diagnosis of Borderline Personality Disorder - Family meeting if indicated 7/25 -Continue sertraline 50 mg daily and bupropion XL 150 mg daily, monitor diarrhea as it may be a side effect. Encourage patient to take medications with food. -Refer for outpatient therapy and psychiatric care. -Explore options for a family meeting. -Safety planning: Patient states that the police brought in her stockpile of medications; we will need to determine whether there are excess medications that need to be disposed of, and may return a limited supply to her at discharge. 01/03 - Increased Zoloft to 100 mg. daily - Continue to explore healthy coping strategies 01/04 - Continue Zoloft 100mg and Wellbutrin 150mg 01/05 - increase wellbutrin XL to 300mg po qam tomorrow. risks and benefits reviewed. (2) Cluster B personality disorder in adult 01/01 - Patient with significant relationship problems, given her history - Explore with the patient Discharge / Aftercare Planning Therapist: Name: Debbie Marketing Analytics Manager: Name: None Visit Code E&M Code: 74759 Inventory Assets Strengths: Intelligence, willingness to engage in treatment Needs: To be in psychiatric care Risk Factors Assessment : Yes /single/: Yes Higher / Fall in social status: No Health problems: No Mental Health Diagnoses: Yes Substance use disorders: No Family history of suicide: No Previous psychiatric stay: Yes Hopelessness: Yes Smoker: No Protective Factors Assessment Yazidi beliefs: Yes : No Responsible for young children: No Employed: No Stable relationships: No Supportive family: No Data Vital Signs Last 24 Hrs: Date Time Temp Pulse Resp B/P (MAP) Pulse Ox O2 Delivery O2 Flow Rate FiO2 01/05/18 06:59 36.6 60 16 103/61 79 105/64 Meds Administered Last 24 Hrs: Meds Administered (Past 24Hrs) Medications (Trade) Dose Ordered Sig/Nila Route Start Time Stop Time Status Last Admin Dose Admin Sertraline HCl (Zoloft Tab) 100 mg QAM PO 01/04/18 09:00 02/03/18 08:59 01/05/18 08:57 100 MG
[2018-01-05] MEDS: hydrOXYzine HCL 25 MG TAB PO PRN ×2 (22:23→23:35)
[2018-01-06 07:07] VITALS: BP_SYST 101; BP_SYST 110; BP_DIAS 64; BP_DIAS 74; PULSE 65; PULSE 87; TEMP 36.6
[2018-01-06] MEDS: BuPROPion XL 150 MG TABCR PO SCH (09:00)
[2018-01-06] MEDS: SERTRALINE HCL 100 MG TAB PO SCH (09:26)
--- NOTE | 2018-01-06 11:18 | Psychiatric Progress Notes ---
Progress Note Date of Service Jan 06, 2018. Interval History Milagro Montgomery is a 37-year-old female admitted voluntarily on Dec 31, 2017 after being brought to the emergency department by police with severe depression and reports of multiple suicide attempts. Chief Complaint "That lifting feeling is still happening. It is nice ". Subjective Patient was seen & assessed interval progress reviewed with Treatment Team. Per staff no acute events overnight. Slept well with Vistaril 50 mg 2. Still describing hopelessness but affect appearing brighter on the unit. This morning she describes a little residual grogginess from the Vistaril. Was having to have slept well last evening though. She again describes slight interval improvement perceiving that she is becoming more clear in her thinking as mood is improving. She has not yet received increased dose of Wellbutrin this morning at time of evaluation. She asks if it is normal to have chronic residual depression. Review of Systems Constitutional: + fatigue Neurologic: No balance problems Psychiatric: + depression symptoms Sleep Information Total Hours of Sleep: 6.00 Meal Information Percent of Breakfast Consumed: 100 Percent of Lunch Consumed: 100 Percent of Dinner Consumed: 100 Mental Status Exam During interview pt is: cooperative, other (groggy) Appearance: appropriately dressed, appropriately groomed Eye contact is: good Motor behavior is: no abnormal motor movements Speech: other (soft, slow) Affect: blunted Mood is: depressed Thought process: goal directed, other (very mild slowing) Thought content: reality based without delusions Suicidal thought are: present, Intent: denied Homicidal thoughts are: denied Hallucinations: denies auditory, denies visual Cognition: memory grossly intact, attention grossly intact, language grossly intact Intelligence estimated to be: average Insight: impaired Judgement: impaired Plan (1) Major depressive disorder, recurrent severe without psychotic features 01/01 - Restart Zoloft 50 mg. daily and Wellbutrin XL 150 mg daily - Recommend follow up with a psychiatric prescriber - Recommend return to therapy - Q 15 min checks for safety - Encourage participation in group and individual counseling - Explore the diagnosis of Borderline Personality Disorder - Family meeting if indicated 01/02 -Continue sertraline 50 mg daily and bupropion XL 150 mg daily, monitor diarrhea as it may be a side effect. Encourage patient to take medications with food. -Refer for outpatient therapy and psychiatric care. -Explore options for a family meeting. -Safety planning: Patient states that the police brought in her stockpile of medications; we will need to determine whether there are excess medications that need to be disposed of, and may return a limited supply to her at discharge. 01/03 - Increased Zoloft to 100 mg. daily - Continue to explore healthy coping strategies 01/04 - Continue Zoloft 100mg and Wellbutrin 150mg 01/05 - increase wellbutrin XL to 300mg po qam tomorrow. risks and benefits reviewed. 01/06 -Again describing slow improvement in mood and clarity of thinking. Continue medication regimen as above. -Suggested she consider mood charting as outpatient (2) Cluster B personality disorder in adult 01/01 - Patient with significant relationship problems, given her history - Explore with the patient Discharge / Aftercare Planning Therapist: Name: None Sr. Strategic Sourcing Manager: Name: None Visit Code E&M Code: 18066 Inventory Assets Strengths: Intelligence, willingness to engage in treatment Needs: To be in psychiatric care Risk Factors Assessment : Yes /single/: Yes Higher / Fall in social status: No Health problems: No Mental Health Diagnoses: Yes Substance use disorders: No Family history of suicide: No Previous psychiatric stay: Yes Hopelessness: Yes Smoker: No Protective Factors Assessment Muslim beliefs: Yes : No Responsible for young children: No Employed: No Stable relationships: No Supportive family: No Data Vital Signs Last 24 Hrs: Date Time Temp Pulse Resp B/P (MAP) Pulse Ox O2 Delivery O2 Flow Rate FiO2 01/06/18 07:07 36.6 65 16 101/64 87 110/74
[2018-01-06] MEDS: hydrOXYzine HCL 25 MG TAB PO PRN ×2 (22:17→23:16)
[2018-01-07 06:58] VITALS: BP_SYST 114; BP_SYST 117; BP_DIAS 73; BP_DIAS 74; PULSE 71; PULSE 77; TEMP 36.4
[2018-01-07] MEDS: SERTRALINE HCL 100 MG TAB PO SCH (09:00)
[2018-01-07] MEDS: BuPROPion XL 150 MG TABCR PO SCH (09:00)
--- NOTE | 2018-01-07 11:03 | Psychiatric Progress Notes ---
Progress Note Date of Service Jan 07, 2018. Interval History Milagro Montgomery is a 37-year-old female admitted voluntarily on Dec 31, 2017 after being brought to the emergency department by police with severe depression and reports of multiple suicide attempts. Chief Complaint "Things are pretty ok". Subjective Patient was seen & assessed interval progress reviewed with Treatment Team. Staff report the patient is having difficulty with sleep. Pt had been encouraged by staff to contact HR today to determine the status of her position. Pt was seen today to assess progress since admission. Pt states she is noticing some "clarity" stating she feels the "heaviness is dissipating." Pt does admit to ongoing suicidality stating, "I'm still struggling with the idea of what's there to live for, the suicidal intent is definitely still there. " She states her thoughts are not "urgent", but she is unable to contract for safety outside of the hospital at this time. Pt reports issues with sleep, but shares her dose increase to 300mg of Wellbutrin XL had to be given later in the afternoon, which may be a contributing factor. Pt also reports evening headaches the past 2 nights. Pt denies issues with appetite. Review of Systems Psych: denies symptoms other than stated above Constitutional: reports fatigue, evening headaches Cardiovascular: denied GI: denied Neurologic: reports increased restlessness in legs at night Remainder of 10 body systems also reviewed and denied other than noted above. Sleep Information Total Hours of Sleep: 4.25 Meal Information Percent of Breakfast Consumed: 100 Percent of Lunch Consumed: 100 Percent of Dinner Consumed: 100 Mental Status Exam During interview pt is: alert and oriented, cooperative Appearance: appropriately dressed, appropriately groomed Eye contact is: fair Motor behavior is: no abnormal motor movements Speech: other (mildly slowed speech, no apparent thought blocking, soft volume) Affect: blunted Mood is: depressed Thought process: goal directed Thought content: reality based without delusions Suicidal thought are: present, Intent: present ("not urgent, but probably would eventually") Homicidal thoughts are: denied Hallucinations: denies auditory, denies visual Cognition: memory grossly intact, attention grossly intact, language grossly intact Intelligence estimated to be: average Insight: impaired Judgement: impaired Impression Ongoing depressive symptoms which may be improving mildly. Pt continues to struggle with suicidal ideation but feels it is "less urgent". She remains unable to contract for safety outside of the hospital setting. Pt tolerating increased dose of Wellbutrin XL to 300mg yesterday, although the increased dose with later administration may be contributing to her sleeping difficulties last evening. Pt requires ongoing inpatient treatment due to admission of ongoing suicidal thoughts, especially given her attempts and detailed suicide plan prior to admission. Plan (1) Major depressive disorder, recurrent severe without psychotic features 01/01 - Restart Zoloft 50 mg. daily and Wellbutrin XL 150 mg daily - Recommend follow up with a psychiatric prescriber - Recommend return to therapy - Q 15 min checks for safety - Encourage participation in group and individual counseling - Explore the diagnosis of Borderline Personality Disorder - Family meeting if indicated 01/02 -Continue sertraline 50 mg daily and bupropion XL 150 mg daily, monitor diarrhea as it may be a side effect. Encourage patient to take medications with food. -Refer for outpatient therapy and psychiatric care. -Explore options for a family meeting. -Safety planning: Patient states that the police brought in her stockpile of medications; we will need to determine whether there are excess medications that need to be disposed of, and may return a limited supply to her at discharge. 01/03 - Increased Zoloft to 100 mg. daily - Continue to explore healthy coping strategies 01/04 - Continue Zoloft 100mg and Wellbutrin 150mg 01/05 - increase wellbutrin XL to 300mg po qam tomorrow. risks and benefits reviewed. 01/06 -Again describing slow improvement in mood and clarity of thinking. Continue medication regimen as above. -Suggested she consider mood charting as outpatient 01/07 - Continue Zoloft 100mg and Wellbutrin 300mg daily - Aftercare in the [facility], as she is planning to stay locally (2) Cluster B personality disorder in adult 01/01 - Patient with significant relationship problems, given her history - Explore with the patient Discharge / Aftercare Planning Therapist: Name: None Seo Associate: Name: None Visit Code E&M Code: 24041 Inventory Assets Strengths: Intelligence, willingness to engage in treatment Needs: To be in psychiatric care Risk Factors Assessment : Yes /single/: Yes Higher / Fall in social status: No Health problems: No Mental Health Diagnoses: Yes Substance use disorders: No Family history of suicide: No Previous psychiatric stay: Yes Hopelessness: Yes Smoker: No Protective Factors Assessment Orthodox beliefs: Yes : No Responsible for young children: No Employed: No Stable relationships: No Supportive family: No Data Vital Signs Last 24 Hrs: Date Time Temp Pulse Resp B/P (MAP) Pulse Ox O2 Delivery O2 Flow Rate FiO2 01/07/18 06:58 36.4 71 16 117/73 77 114/74 Meds Administered Last 24 Hrs: Meds Administered (Past 24Hrs) Medications (Trade) Dose Ordered Sig/Nila Route Start Time Stop Time Status Last Admin Dose Admin Bupropion HCl (Wellbutrin-Xl Tab) 300 mg QAM PO 01/06/18 09:00 02/01/18 08:59 01/07/18 09:00 300 MG
[2018-01-07] MEDS: hydrOXYzine HCL 25 MG TAB PO PRN ×2 (22:06→23:04)
[2018-01-08 06:52] VITALS: BP_SYST 108; BP_SYST 96; BP_DIAS 60; BP_DIAS 70; PULSE 71; PULSE 92; TEMP 36.6
[2018-01-08] MEDS: SERTRALINE HCL 100 MG TAB PO SCH (10:02)
[2018-01-08] MEDS: BuPROPion XL 150 MG TABCR PO SCH (10:02)
--- NOTE | 2018-01-08 15:09 | Psychiatric Progress Notes ---
Progress Note Date of Service Jan 08, 2018. Interval History Milagro Montgomery is a 37-year-old female admitted voluntarily on Dec 31, 2017 after being brought to the emergency department by police with severe depression and reports of multiple suicide attempts. Chief Complaint "Better". Subjective Patient was seen & assessed interval progress reviewed with Treatment Team. The patient says that she believes that the medications are allowing her to feel "no so mentally exhausted" enabling her to "work through stuff". She talks today about having reacted to things in very black and white ways in the past, saying "no" to things like dating, a family or working in the mental health field. 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 She talked about the family meeting with her father and says that she is going to work harder to include him when she has needs, although saying that it will feel "weird" at first since she has not allowed herself to be honest and vulnerable with him for a long time, worrying that he wouldn't be able to handle what she has to say. She feels that she is using this hospitalization very differently from the last, saying that she is now trying to defend against simple platitudes, and really trying to look at her life an understand the why's. She admits to some ongoing SI, but more conditional in nature, ie suicide if things wouldn't go well. Review of Systems Constitutional: No fever, No chills, No sweats, No weight loss, No weakness, No fatigue, No problem reported ENT: No hearing loss, No unusual epistaxis, No nasal symptoms, No sore throat, No tinnitus, No dental problems, No trouble swallowing, No problem reported Respiratory: No cough, No sputum, No wheezing, No shortness of breath, No dyspnea on exertion, No dyspnea at rest, No hemoptysis, No problem reported Cardiovascular: No chest pain, No orthopnea, No PND, No edema, No claudication , No palpitations, No problem reported Abdomen: No pain, No nausea, No vomiting, No diarrhea, No constipation, No GI bleeding, No problem reported Musculoskeletal: + problem reported (restlessness in her legs at night) Neurologic: No memory loss, No paralysis, No weakness, No numbness/tingling, No vertigo, No balance problems, No problem reported Psychiatric: + depression symptoms (improving) Integumentary: No rash, No itch, No new/changing skin lesions, No color change , No bleeding, No problem reported Sleep Information Total Hours of Sleep: 4.25 Meal Information Percent of Breakfast Consumed: 100 Percent of Lunch Consumed: 100 Percent of Dinner Consumed: 100 Mental Status Exam During interview pt is: alert and oriented, cooperative Appearance: appropriately dressed, appropriately groomed Eye contact is: fair Motor behavior is: no abnormal motor movements Speech: normal in rate, rhythm & volume Affect: blunted Mood is: depressed Thought process: goal directed Thought content: reality based without delusions Suicidal thought are: present (but conditional) Homicidal thoughts are: denied Hallucinations: denies auditory, denies visual Cognition: memory grossly intact, attention grossly intact, language grossly intact Intelligence estimated to be: average Insight: impaired Judgement: impaired Impression Mood improving and SI now more conditional. C/o some restlessness at night although doubt its a side effect of meds, but will monitor. Will continue with current meds, and working toward a robust safety plan for discharge. Plan (1) Major depressive disorder, recurrent severe without psychotic features 01/01 - Restart Zoloft 50 mg. daily and Wellbutrin XL 150 mg daily - Recommend follow up with a psychiatric prescriber - Recommend return to therapy - Q 15 min checks for safety - Encourage participation in group and individual counseling - Explore the diagnosis of Borderline Personality Disorder - Family meeting if indicated 01/02 -Continue sertraline 50 mg daily and bupropion XL 150 mg daily, monitor diarrhea as it may be a side effect. Encourage patient to take medications with food. -Refer for outpatient therapy and psychiatric care. -Explore options for a family meeting. -Safety planning: Patient states that the police brought in her stockpile of medications; we will need to determine whether there are excess medications that need to be disposed of, and may return a limited supply to her at discharge. 01/03 - Increased Zoloft to 100 mg. daily - Continue to explore healthy coping strategies 01/04 - Continue Zoloft 100mg and Wellbutrin 150mg 01/05 - increase wellbutrin XL to 300mg po qam tomorrow. risks and benefits reviewed. 01/06 -Again describing slow improvement in mood and clarity of thinking. Continue medication regimen as above. -Suggested she consider mood charting as outpatient 01/07 - Continue Zoloft 100mg and Wellbutrin 300mg daily - Aftercare in the [place] area, as she is planning to stay locally (2) Cluster B personality disorder in adult 01/01 - Patient with significant relationship problems, given her history - Explore with the patient Discharge / Aftercare Planning Primary Care Physician: Name: Dr. Yemi Diaz - [facility] Appointment Notes: [address], [address], [place], [place] Therapist: Name: None Generating Plant Superintendent: Name: [facility] (call when we know discharge date) ext [phone] (Arabella - Administrative Case Management Intake) Appointment Notes: [address] [place] [address] Visit Code E&M Code: 30440 Inventory Assets Strengths: Intelligence, willingness to engage in treatment Needs: To be in psychiatric care Risk Factors Assessment : Yes /single/: Yes Higher / Fall in social status: No Health problems: No Mental Health Diagnoses: Yes Substance use disorders: No Family history of suicide: No Previous psychiatric stay: Yes Hopelessness: Yes Smoker: No Protective Factors Assessment Anabaptist beliefs: Yes : No Responsible for young children: No Employed: No Stable relationships: No Supportive family: No Data Vital Signs Last 24 Hrs: Date Time Temp Pulse Resp B/P (MAP) Pulse Ox O2 Delivery O2 Flow Rate FiO2 01/08/18 06:52 36.6 71 16 96/60 92 108/70 Meds Administered Last 24 Hrs: Current Inpatient Medications Medications (Trade) Dose Ordered Sig/Nila Route Start Time Stop Time Status Last Admin Dose Admin Acetaminophen (Tylenol Tab) 650 mg Q4H PRN PO 12/31/17 20:30 01/30/18 20:29 01/07/18 00:27 650 MG Bismuth Subsalicylate (Kaopectate Liqd) 15 ml PRN PRN PO 12/31/17 20:30 01/30/18 20:29 Al Hydroxide/Mg Hydroxide (Maalox Susp) 30 ml Q4H PRN PO 12/31/17 20:30 01/30/18 20:29 Magnesium Hydroxide (Milk Of Magnesia Susp) 30 ml DAILY PRN PO 12/31/17 20:30 01/30/18 20:29 Sodium Chloride ([place] Nasal [place]) PRN PRN NA 12/31/17 20:30 01/30/18 20:29 Hydroxyzine HCl (Vistaril Tab) 50 mg HSZ PRN PO 12/31/17 20:30 01/30/18 20:29 01/07/18 23:04 50 MG Hydroxyzine HCl (Vistaril Tab) 25 mg Q4H PRN PO 12/31/17 20:30 01/30/18 20:29 01/07/18 12:31 25 MG Sertraline HCl (Zoloft Tab) 100 mg QAM PO 01/04/18 09:00 02/03/18 08:59 01/08/18 10:02 100 MG Bupropion HCl (Wellbutrin-Xl Tab) 300 mg QAM PO 01/06/18 09:00 02/01/18 08:59 01/08/18 10:02 300 MG Lab Results Last 24 Hrs: 12/31/17 17:31 Red Blood Count 4.88, Mean Corpuscular Volume 89.8, Mean Corpuscular Hemoglobin 29.7, Mean Corpuscular Hemoglobin Concent 33.1, Mean Platelet Volume 10.8, Neutrophils (%) (Auto) 67.5, Lymphocytes (%) (Auto) 22.2, Monocytes (%) (Auto) 8.6, Eosinophils (%) (Auto) 1.1, Basophils (%) (Auto) 0.4, Neutrophils # (Auto) 3.53, Lymphocytes # (Auto) 1.16, Monocytes # (Auto) 0.45, Eosinophils # (Auto) 0.06, Basophils # (Auto) 0.02 12/31/17 17:31 Test 12/31/17 16:40 12/31/17 17:31 12/31/17 18:55 Urine Color DK YELLOW Urine Appearance CLOUDY (CLEAR) Urine pH 5.0 (4.5-7.5) Urine Specific [place] 1.034 (1.000-1.030) Urine Protein TRACE (NEG) Urine Glucose (UA) NEG (NEG) Urine Ketones TRACE (NEG) Urine Occult Blood 2+ (NEG) Urine Nitrite NEG (NEG) Urine Bilirubin NEG (NEG) Urine Urobilinogen NEG (NEG) Urine Leukocyte Esterase NEG (NEG) Urine WBC (Auto) 1-5 /hpf (0-5) Urine RBC (Auto) 0-4 /hpf (0-4) Urine Hyaline Casts (Auto) 5-10 /lpf (0-5) Urine Epithelial Cells (Auto) >30 /lpf (0-5) Urine Bacteria (Auto) NEG (NEG) Urine Crystals CALCIUM OXALATE (NONE Urine Test NEG (NEG) Urine Synthetic Stimulants see note Urine Opiates Screen NEG (NEG) Urine Methadone, Qualitative NEG (NEG) Urine Barbiturates NEG (NEG) Urine Phencyclidine (PCP) Level NEG (NEG) Ur Amphetamine/Methamphetamine NEG (NEG) MDMA (Ecstasy) Screen NEG (NEG) Urine Benzodiazepines Screen NEG (NEG) Urine Cocaine Metabolite NEG (NEG) Cannabinoids Comment see note Urine Synthetic Cannabinoids NEGATIVE (Negative) Ur Synthetic Cannabinoids Confirm (()) Urine Marijuana (THC) NEG (NEG) White Blood Count 5.23 K/uL (4.8-10.8) Red Blood Count 4.88 M/uL (4.2-5.4) Hemoglobin 14.5 g/dL (12.0-16.0) Hematocrit 43.8 % (37-47) Mean Corpuscular Volume 89.8 fL (80-100) Mean Corpuscular Hemoglobin 29.7 pg (25-34) Mean Corpuscular Hemoglobin Concent 33.1 g/dl (32-36) Platelet Count 297 K/uL (130-400) Mean Platelet Volume 10.8 fL (7.4-10.4) Neutrophils (%) (Auto) 67.5 % Lymphocytes (%) (Auto) 22.2 % Monocytes (%) (Auto) 8.6 % Eosinophils (%) (Auto) 1.1 % Basophils (%) (Auto) 0.4 % Neutrophils # (Auto) 3.53 K/uL (1.4-6.5) Lymphocytes # (Auto) 1.16 K/uL (1.2-3.4) Monocytes # (Auto) 0.45 K/uL (0.11-0.59) Eosinophils # (Auto) 0.06 K/uL (0-0.5) Basophils # (Auto) 0.02 K/uL (0-0.2) RDW Standard Deviation 40.8 fL (36.4-46.3) RDW Coefficient of Variation 12.4 % (11.5-14.5) Immature Granulocyte % (Auto) 0.2 % Immature Granulocyte # (Auto) 0.01 K/uL (0.00-0.02) Anion Gap 7.0 mmol/L (3-11) Est Creatinine Clear Calc Drug Dose 69.2 ml/min Estimated GFR () 70.6 Estimated GFR (Non- 61.0 BUN/Creatinine Ratio 14.1 (10-20) Calcium Level 8.9 mg/dl (8.5-10.1) Total Bilirubin 0.6 mg/dl (0.2-1) Direct Bilirubin 0.2 mg/dl (0-0.2) Aspartate Amino Transf (AST/SGOT) 12 U/L (15-37) Alanine Aminotransferase (ALT/SGPT) 17 U/L (12-78) Alkaline Phosphatase 62 U/L (45-117) Total Protein 7.5 gm/dl (6.4-8.2) Albumin 4.2 gm/dl (3.4-5.0) Thyroid Stimulating Hormone (TSH) 1.890 uIu/ml (0.300-4.500) Salicylates Level < 1.7 mg/dl (2.8-20) Ethyl Alcohol mg/dL < 3.0 mg/dl (0-3) Acetaminophen Level 26 ug/ml (10-30)
[2018-01-08] MEDS: hydrOXYzine HCL 25 MG TAB PO PRN ×2 (21:30→22:32)
[2018-01-09 07:01] VITALS: BP_SYST 105; BP_SYST 129; BP_DIAS 69; BP_DIAS 86; PULSE 76; PULSE 86; TEMP 36.6
[2018-01-09] MEDS: SERTRALINE HCL 100 MG TAB PO SCH (10:06)
[2018-01-09] MEDS: BuPROPion XL 150 MG TABCR PO SCH (10:06)
--- NOTE | 2018-01-09 10:41 | Psychiatric Progress Notes ---
Progress Note Date of Service Jan 09, 2018. Interval History Milagro Montgomery is a 37-year-old female admitted voluntarily on Dec 31, 2017 after being brought to the emergency department by police with severe depression and reports of multiple suicide attempts. Chief Complaint "Picked a really big goal for today". Subjective Patient was seen & assessed interval progress reviewed with Treatment Team. Staff reports she is attending and participating in groups. She completed an intake with the [facility] unit yesterday, and they agreed to fund her outpatient treatment until she gets insurance. She processed her relationship difficulties with staff. 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 She talks about the need to find a job after discharge, stating that she needs to her and at least $14 an hour to pay her bills, but has not thought about what she might do , and feels overwhelmed and thinking about that. She is struggling with anger, stating she "wants to hold onto it, but I know I cannot." She reports feeling "lonely," and continues to have suicidal thoughts, including thinking of away to hang herself here in the hospital by using her teeth to rip her flat sheet, and then tying it over a corner in the bathroom. She says she got rid of her flat sheet to make herself feel more safe, and is able to contract for safety on the unit, agrees to go to staff if she feels unsafe or think she is going to harm herself. She cannot contract for safety outside the hospital. She says she set a treatment goal for today that she would talk to her male friend who has been visiting daily and asked if he would be willing to go to her apartment and remove the things she could use to commit suicide, including her scars, OTC medications, and a pull-up bar. She says "I want to keep my scarves, but I know if I keep them, I know what I will do." Discussed the option of staying with someone after discharge for increased support, and she thinks this is a good idea, and notes a female friend in town whom she might be able to stay with temporarily. Sleep Information Total Hours of Sleep: 7.00 Meal Information Percent of Breakfast Consumed: 100 Percent of Lunch Consumed: 100 Percent of Dinner Consumed: 100 Mental Status Exam During interview pt is: alert and oriented, cooperative Appearance: appropriately dressed, appropriately groomed Eye contact is: fair Motor behavior is: steady gait & station, no abnormal motor movements Speech: normal in rate, rhythm & volume Affect: other (Dramatic) Mood is: depressed ("But a little more hope.") Thought process: goal directed Thought content: reality based without delusions Suicidal thought are: present (Multiple plans, including ways she could kill herself on the inpatient unit. Able to contract for safety on the unit, but not outside the hospital.) Homicidal thoughts are: denied Hallucinations: denies auditory, denies visual Cognition: memory grossly intact, attention grossly intact, language grossly intact Intelligence estimated to be: average Insight: impaired Judgement: impaired Impression Mood slightly improved, but continues to have suicidal thoughts and is unable to contract for safety outside of the hospital. He is planning to talk to her friends today for assistance in removing potentially dangerous items from her apartment and seeing if she could stay with someone immediately after discharge for increased support and safety. We are exploring outpatient treatment options , as she would benefit from getting into treatment rapidly, and her current intake is 3 weeks away. She continues to require inpatient treatment due to the risk for suicide if discharged. Plan (1) Major depressive disorder, recurrent severe without psychotic features 01/01 - Restart Zoloft 50 mg. daily and Wellbutrin XL 150 mg daily - Recommend follow up with a psychiatric prescriber - Recommend return to therapy - Q 15 min checks for safety - Encourage participation in group and individual counseling - Explore the diagnosis of Borderline Personality Disorder - Family meeting if indicated 01/02 -Continue sertraline 50 mg daily and bupropion XL 150 mg daily, monitor diarrhea as it may be a side effect. Encourage patient to take medications with food. -Refer for outpatient therapy and psychiatric care. -Explore options for a family meeting. -Safety planning: Patient states that the police brought in her stockpile of medications; we will need to determine whether there are excess medications that need to be disposed of, and may return a limited supply to her at discharge. 01/03 - Increased Zoloft to 100 mg. daily - Continue to explore healthy coping strategies 01/04 - Continue Zoloft 100mg and Wellbutrin 150mg 01/05 - increase wellbutrin XL to 300mg po qam tomorrow. risks and benefits reviewed. 01/06 -Again describing slow improvement in mood and clarity of thinking. Continue medication regimen as above. -Suggested she consider mood charting as outpatient 01/07 - Continue Zoloft 100mg and Wellbutrin 300mg daily - Aftercare in the [place] area, as she is planning to stay locally 01/09 -Continue current medications, groups, and safety/discharge planning. Patient continues to be unable to contract for safety outside of the hospital, but is working on plans to increase safety (is going to ask her friend to remove her OTC meds, scarves, and a pull-up bar from her apartment prior to discharge, and another friend to stay with her after discharge). (2) Cluster B personality disorder in adult 01/01 - Patient with significant relationship problems, given her history - Explore with the patient Discharge / Aftercare Planning Primary Care Physician: Name: Dr. Yemi Diaz - [facility] Appointment Notes: [address] [place] [address], [address], [place] Psychiatrist: Name: Phil Carrasquillo PA-C Date of Appointment: Jan 30, 2018 Time of Appointment: 8:40 a.m. [facility]: Name: Phil - [facility], will refer to a therapist [facility]: [id number] Paratransit Operator: Name: [facility] (call when we know discharge date) ext [phone] (Arabella - Administrative Case Management Intake) Appointment Notes: [facility] Visit Code E&M Code: 16264 Inventory Assets Strengths: Intelligence, willingness to engage in treatment Needs: To be in psychiatric care Risk Factors Assessment : Yes /single/: Yes Higher / Fall in social status: No Health problems: No Mental Health Diagnoses: Yes Substance use disorders: No Family history of suicide: No Previous psychiatric stay: Yes Hopelessness: Yes Smoker: No Protective Factors Assessment Scientologist beliefs: Yes : No Responsible for young children: No Employed: No Stable relationships: No Supportive family: No Data Vital Signs Last 24 Hrs: Date Time Temp Pulse Resp B/P (MAP) Pulse Ox O2 Delivery O2 Flow Rate FiO2 01/09/18 07:01 36.6 76 16 129/86 86 105/69
[2018-01-09] MEDS: hydrOXYzine HCL 25 MG TAB PO PRN ×2 (21:03→22:07)
[2018-01-10 07:33] VITALS: BP_SYST 113; BP_SYST 114; BP_DIAS 71; BP_DIAS 79; PULSE 78; PULSE 82; TEMP 36.6
[2018-01-10] MEDS: SERTRALINE HCL 100 MG TAB PO SCH (08:44)
[2018-01-10] MEDS: BuPROPion XL 150 MG TABCR PO SCH (08:45)
--- NOTE | 2018-01-10 12:14 | Psychiatric Progress Notes ---
Progress Note Date of Service Jan 10, 2018. Interval History Milagro Montgomery is a 37-year-old female admitted voluntarily on Dec 31, 2017 after being brought to the emergency department by police with severe depression and reports of multiple suicide attempts. Chief Complaint "I'm sleepy today.". Subjective Patient was seen & assessed interval progress reviewed with Treatment Team. The patient was still in bed at 1130, when called to my office. She says that she is tired despite having slept well last night. she says that she had a good visit with 2 friends last evening who have agreed to remove several items from her apartment that Milagro doesn't feel safe with. They have also agreed to regularly spend time with her after discharge. Milagro has been rethinking her need for a job, and says that she may consider returning to the [employer] at least temporarily until she can find another more satisfying job. She says that not being able to pay her bills would be too much stress for her. She understands that after being in the hospital for 10 days, that we will need to look toward outpatient treatment, and she is looking for ways to provide for her own safety and structure. She talked about not being able to go stay with her father at this point, as her younger brother is sleeping on his couch, her older brother and his family are living in the basement, and there's really no room for her there. She says that she is very happy about the support from her friends and says "I heard them" when they said that support is what good friends do. Review of Systems Constitutional: + fatigue ENT: No hearing loss, No unusual epistaxis, No nasal symptoms, No sore throat, No tinnitus, No dental problems, No trouble swallowing, No problem reported Respiratory: No cough, No sputum, No wheezing, No shortness of breath, No dyspnea on exertion, No dyspnea at rest, No hemoptysis, No problem reported Cardiovascular: No chest pain, No orthopnea, No PND, No edema, No claudication , No palpitations, No problem reported Abdomen: No pain, No nausea, No vomiting, No diarrhea, No constipation, No GI bleeding, No problem reported Musculoskeletal: No joint pain, No muscle pain, No swelling, No calf pain, No problem reported Neurologic: No memory loss, No paralysis, No weakness, No numbness/tingling, No vertigo, No balance problems, No problem reported Psychiatric: + depression symptoms (improving) Integumentary: No rash, No itch, No new/changing skin lesions, No color change , No bleeding, No problem reported Sleep Information Total Hours of Sleep: 7.25 Meal Information Percent of Breakfast Consumed: 100 Percent of Lunch Consumed: 100 Percent of Dinner Consumed: 100 Mental Status Exam During interview pt is: alert and oriented, cooperative Appearance: appropriately dressed, appropriately groomed Eye contact is: good Motor behavior is: steady gait & station, no abnormal motor movements Speech: normal in rate, rhythm & volume Affect: other (Dramatic) Mood is: depressed Thought process: goal directed Thought content: reality based without delusions Suicidal thought are: present (but conditional) Homicidal thoughts are: denied Hallucinations: denies auditory, denies visual Cognition: memory grossly intact, attention grossly intact, language grossly intact Intelligence estimated to be: average Insight: impaired Judgement: impaired Impression Is putting in place some safety measures in anticipation of discharge, such as asking her friends to remove unsafe article, and plans to return to her job temporarily. She is still anxious about going home, but sees some of that anxiety as being about leaving a comfortable, safe environment. She will have family and friends visit [facility] and will continue her attempts to design a safe environment for her discharge. Plan (1) Major depressive disorder, recurrent severe without psychotic features 01/01 - Restart Zoloft 50 mg. daily and Wellbutrin XL 150 mg daily - Recommend follow up with a psychiatric prescriber - Recommend return to therapy - Q 15 min checks for safety - Encourage participation in group and individual counseling - Explore the diagnosis of Borderline Personality Disorder - Family meeting if indicated 01/02 -Continue sertraline 50 mg daily and bupropion XL 150 mg daily, monitor diarrhea as it may be a side effect. Encourage patient to take medications with food. -Refer for outpatient therapy and psychiatric care. -Explore options for a family meeting. -Safety planning: Patient states that the police brought in her stockpile of medications; we will need to determine whether there are excess medications that need to be disposed of, and may return a limited supply to her at discharge. 01/03 - Increased Zoloft to 100 mg. daily - Continue to explore healthy coping strategies 01/04 - Continue Zoloft 100mg and Wellbutrin 150mg 01/05 - increase wellbutrin XL to 300mg po qam tomorrow. risks and benefits reviewed. 01/06 -Again describing slow improvement in mood and clarity of thinking. Continue medication regimen as above. -Suggested she consider mood charting as outpatient 01/07 - Continue Zoloft 100mg and Wellbutrin 300mg daily - Aftercare in the [place] area, as she is planning to stay locally 01/09 -Continue current medications, groups, and safety/discharge planning. Patient continues to be unable to contract for safety outside of the hospital, but is working on plans to increase safety (is going to ask her friend to remove her OTC meds, scarves, and a pull-up bar from her apartment prior to discharge, and another friend to stay with her after discharge). 01/10 - Making arrangements with friends and family for a safe living environment post discharge - Is considering returning to her old job until she is able to find a more fulfilling one. (2) Cluster B personality disorder in adult 01/01 - Patient with significant relationship problems, given her history - Explore with the patient Discharge / Aftercare Planning Primary Care Physician: Name: Dr. Yemi Diaz - [facility] Appointment Notes: [address] [place] [address], [address], [place], [place] Psychiatrist: Name: Phil Carrasquillo PA-C Date of Appointment: Jan 30, 2018 Time of Appointment: 8:40 a.m. Appointment Notes: [address] [place], [place] [id number] Therapist: Name: Phil - after psychiatry intake, will refer to a therapist Appointment Notes: [address] [place], [place] [address] Loom Changer: Name: [facility] (call when we know discharge date) ext [phone] (Arabella - Administrative Case Management Intake) Appointment Notes: [facility] Visit Code E&M Code: 08924 Inventory Assets Strengths: Intelligence, willingness to engage in treatment Needs: To be in psychiatric care Risk Factors Assessment : Yes /single/: Yes Higher / Fall in social status: No Health problems: No Mental Health Diagnoses: Yes Substance use disorders: No Family history of suicide: No Previous psychiatric stay: Yes Hopelessness: Yes Smoker: No Protective Factors Assessment Rastafari beliefs: Yes : No Responsible for young children: No Employed: No Stable relationships: No Supportive family: No Data Vital Signs Last 24 Hrs: Date Time Temp Pulse Resp B/P (MAP) Pulse Ox O2 Delivery O2 Flow Rate FiO2 01/10/18 07:33 36.6 82 16 113/71 78 114/79 Meds Administered Last 24 Hrs: Current Inpatient Medications Medications (Trade) Dose Ordered Sig/Nila Route Start Time Stop Time Status Last Admin Dose Admin Acetaminophen (Tylenol Tab) 650 mg Q4H PRN PO 12/31/17 20:30 01/30/18 20:29 01/07/18 00:27 650 MG Bismuth Subsalicylate (Kaopectate Liqd) 15 ml PRN PRN PO 12/31/17 20:30 01/30/18 20:29 Al Hydroxide/Mg Hydroxide (Maalox Susp) 30 ml Q4H PRN PO 12/31/17 20:30 01/30/18 20:29 Magnesium Hydroxide (Milk Of Magnesia Susp) 30 ml DAILY PRN PO 12/31/17 20:30 01/30/18 20:29 Sodium Chloride ([place]udspeth Nasal [place]) PRN PRN NA 12/31/17 20:30 01/30/18 20:29 Hydroxyzine HCl (Vistaril Tab) 50 mg HSZ PRN PO 12/31/17 20:30 01/30/18 20:29 01/09/18 22:07 50 MG Hydroxyzine HCl (Vistaril Tab) 25 mg Q4H PRN PO 12/31/17 20:30 01/30/18 20:29 01/07/18 12:31 25 MG Sertraline HCl (Zoloft Tab) 100 mg QAM PO 01/04/18 09:00 02/03/18 08:59 01/10/18 08:44 100 MG Bupropion HCl (Wellbutrin-Xl Tab) 300 mg QAM PO 01/06/18 09:00 02/01/18 08:59 01/10/18 08:45 300 MG Lab Results Last 24 Hrs: 12/31/17 17:31 Red Blood Count 4.88, Mean Corpuscular Volume 89.8, Mean Corpuscular Hemoglobin 29.7, Mean Corpuscular Hemoglobin Concent 33.1, Mean Platelet Volume 10.8, Neutrophils (%) (Auto) 67.5, Lymphocytes (%) (Auto) 22.2, Monocytes (%) (Auto) 8.6, Eosinophils (%) (Auto) 1.1, Basophils (%) (Auto) 0.4, Neutrophils # (Auto) 3.53, Lymphocytes # (Auto) 1.16, Monocytes # (Auto) 0.45, Eosinophils # (Auto) 0.06, Basophils # (Auto) 0.02 12/31/17 17:31 Test 12/31/17 16:40 12/31/17 17:31 12/31/17 18:55 Urine Color DK YELLOW Urine Appearance CLOUDY (CLEAR) Urine pH 5.0 (4.5-7.5) Urine Specific [place] 1.034 (1.000-1.030) Urine Protein TRACE (NEG) Urine Glucose (UA) NEG (NEG) Urine Ketones TRACE (NEG) Urine Occult Blood 2+ (NEG) Urine Nitrite NEG (NEG) Urine Bilirubin NEG (NEG) Urine Urobilinogen NEG (NEG) Urine Leukocyte Esterase NEG (NEG) Urine WBC (Auto) 1-5 /hpf (0-5) Urine RBC (Auto) 0-4 /hpf (0-4) Urine Hyaline Casts (Auto) 5-10 /lpf (0-5) Urine Epithelial Cells (Auto) >30 /lpf (0-5) Urine Bacteria (Auto) NEG (NEG) Urine Crystals CALCIUM OXALATE (NONE Urine Test NEG (NEG) Urine Synthetic Stimulants see note Urine Opiates Screen NEG (NEG) Urine Methadone, Qualitative NEG (NEG) Urine Barbiturates NEG (NEG) Urine Phencyclidine (PCP) Level NEG (NEG) Ur Amphetamine/Methamphetamine NEG (NEG) MDMA (Ecstasy) Screen NEG (NEG) Urine Benzodiazepines Screen NEG (NEG) Urine Cocaine Metabolite NEG (NEG) Cannabinoids Comment see note Urine Synthetic Cannabinoids NEGATIVE (Negative) Ur Synthetic Cannabinoids Confirm (()) Urine Marijuana (THC) NEG (NEG) White Blood Count 5.23 K/uL (4.8-10.8) Red Blood Count 4.88 M/uL (4.2-5.4) Hemoglobin 14.5 g/dL (12.0-16.0) Hematocrit 43.8 % (37-47) Mean Corpuscular Volume 89.8 fL (80-100) Mean Corpuscular Hemoglobin 29.7 pg (25-34) Mean Corpuscular Hemoglobin Concent 33.1 g/dl (32-36) Platelet Count 297 K/uL (130-400) Mean Platelet Volume 10.8 fL (7.4-10.4) Neutrophils (%) (Auto) 67.5 % Lymphocytes (%) (Auto) 22.2 % Monocytes (%) (Auto) 8.6 % Eosinophils (%) (Auto) 1.1 % Basophils (%) (Auto) 0.4 % Neutrophils # (Auto) 3.53 K/uL (1.4-6.5) Lymphocytes # (Auto) 1.16 K/uL (1.2-3.4) Monocytes # (Auto) 0.45 K/uL (0.11-0.59) Eosinophils # (Auto) 0.06 K/uL (0-0.5) Basophils # (Auto) 0.02 K/uL (0-0.2) RDW Standard Deviation 40.8 fL (36.4-46.3) RDW Coefficient of Variation 12.4 % (11.5-14.5) Immature Granulocyte % (Auto) 0.2 % Immature Granulocyte # (Auto) 0.01 K/uL (0.00-0.02) Anion Gap 7.0 mmol/L (3-11) Est Creatinine Clear Calc Drug Dose 69.2 ml/min Estimated GFR () 70.6 Estimated GFR (Non- 61.0 BUN/Creatinine Ratio 14.1 (10-20) Calcium Level 8.9 mg/dl (8.5-10.1) Total Bilirubin 0.6 mg/dl (0.2-1) Direct Bilirubin 0.2 mg/dl (0-0.2) Aspartate Amino Transf (AST/SGOT) 12 U/L (15-37) Alanine Aminotransferase (ALT/SGPT) 17 U/L (12-78) Alkaline Phosphatase 62 U/L (45-117) Total Protein 7.5 gm/dl (6.4-8.2) Albumin 4.2 gm/dl (3.4-5.0) Thyroid Stimulating Hormone (TSH) 1.890 uIu/ml (0.300-4.500) Salicylates Level < 1.7 mg/dl (2.8-20) Ethyl Alcohol mg/dL < 3.0 mg/dl (0-3) Acetaminophen Level 26 ug/ml (10-30)
[2018-01-10] MEDS: hydrOXYzine HCL 25 MG TAB PO PRN ×2 (21:44→23:48)
[2018-01-11 06:57] VITALS: BP_SYST 102; BP_SYST 113; BP_DIAS 68; BP_DIAS 79; PULSE 81; TEMP 36.6
[2018-01-11] MEDS: BuPROPion XL 150 MG TABCR PO SCH (09:54)
[2018-01-11] MEDS: SERTRALINE HCL 100 MG TAB PO SCH (09:54)
[2018-01-11] MEDS ORDERED: ATR25 PO (12:17)
--- NOTE | 2018-01-11 12:17 | Discharge Instructions ---
Discharge Information Report Includes Report will include the: Discharge Instructions & Summary Admission Admission Date / Time: Dec 31, 2017 at 20:25 Reason for Admission: Depression Discharge Discharge Diagnosis / Problem: Depression Condition at Discharge: Fair Discharge Goals Goal(s): Decrease discomfort, Improve function, Increase independence, Improve disease control, Learn about illness, Therapeutic intervention, Prevent Disease Progression Activity Recommendations Activity Limitations: resume your previous activity . Instructions / Follow-Up Instructions / Follow-Up . SPECIAL CARE INSTRUCTIONS: 1. Follow through with your scheduled aftercare appointments. If unable to keep an appointment, please call to reschedule. 2. Take your medication only as prescribed. Medication should not be changed or stopped without the approval of your doctor. In the event of worsening symptoms or concerns about side effects, contact your doctor immediately. 3. Utilize new healthy coping skills, anger management skills, and stress management skills learned during your hospitalization. Journal feelings and process them with a support person. Identify stressors or situations that may result in relapse, deterioration or inappropriate behaviors and develop a plan to deal with those issues. 4. If your coping skills are ineffective and you are in crisis, contact your outpatient providers for direction. If unable to reach your providers, please call the CAN HELP LINE AT or go to the closest Emergency Room. 5. Avoid alcohol and un-prescribed drugs. 6. You have been provided with the Mental Health Advance Directives Pamphlet for your review. AFTERCARE APPOINTMENTS: * Please call your insurance company prior to your scheduled appointment to confirm your aftercare providers are covered. Take your insurance information to your appointments. . Discharge / Aftercare Planning Primary Care Physician: Name: Dr. Yemi Diaz - [facility] Appointment Notes: [address] [facility], [address], [place], [place] Psychiatrist: Name: Phil Carrasquillo PA-C Date of Appointment: Jan 30, 2018 Time of Appointment: 8:40 a.m. Appointment Notes: State Marco Canales PA Therapist: Name Of Therapist: Phil [facility] intake, will refer to a therapist Appointment Comments: State Marco Canales PA Charge Coordinator: Name: [facility] (call when we know discharge date) ext [phone] (Arabella - Administrative Case Management Intake) Date of Appointment: Jan 14, 2018 Time of Appointment: 11:00 a.m. Appointment Notes: [address] [facility], [place] . Follow-Up Care Plan for Follow-Up Care: Pt's aftercare was established during this admission to allow for timely followup with psychiatric providers following discharge. Pt has been assigned to a psychiatric prescriber for management of medications and will be seeing a therapist as well. Interim therapy will be provided through [facility] and patient will have an intake with [facility] for additional outpatient support. Current Hospital Diet Patient's current hospital diet: Regular Diet Discharge Diet Recommended Diet: Regular Diet Procedures Procedures Performed: No Pending Studies Pending Studies at Discharge: No Medical Emergencies . Who to Call and When: Medical Emergencies: For questions or emergencies related to your hospital stay, please contact the Inpatient Behavioral Health Unit at [phone]. A cnc mill operator is on-call 01/01 for the Behavioral Health Unit for emergencies At any time you feel your situation is an emergency, you may also call 911 immediately. . Non-Emergent Contact Non-Emergency issues call your: Primary Care Provider, Psychiatrist, Therapist Advance Directives Do You Have an Existing Mental: No Existing Living Will: No Existing Power of Electronics Engineer: No Advance Directives Info Given: To Pt/S.O. Advance Directives Reason: Declines as Mental Health Visit. Discharge Summary Admission HPI Per the Admitting provider: The patient is a 37-year-old woman known to our unit from a previous hospitalization in April 2017. 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 Her stress related to a history of inappropriate relationships in her past including with the of a professor, and with a psychiatrist who treated her during an [place] mental health [place]. She was stabilized on medicines during that stay and referred to the outpatient care of Dr. Spencer Millan, and Ledy Ware both at [facility]. after discharge she decided not to see Dr. Millan, and decided to have her PCP, Dr. Diaz, prescribe her psychiatric meds. She did continue to see her therapist until October when her mood went into dramatic decline. Marifer indicates that she is gone through a lot of transitions recently. In August 2017, her landlord told her that she needed to move out as the landlord's health was in decline and she needed to have family members moving to help her. All might perceive that this was an urgent need and so scrambled to find an apartment and eventually chose one that she describes as "less than ideal". Also living in the new situation where the warp yarn sorter of the house and several other roommates, 1 of whom was an alcoholic. This was a challenge to her as Milagro was trying to stay away from alcohol. Eventually that man moved out. Unfortunately she got to the point where she was avoiding returning home to her apartment. She had made a new [place] of friends after being discharged from our unit last April but during this time when she was avoiding her apartment , her friends started to become more distant. Her best friend, whom she has known since childhood, also ended their friend relationship in October. At that point, almost started to wean herself off of medications, thinking she would stockpiled them for future overdose. The anniversary of her moved to [place] was approaching and she felt she did not want to live another year beyond that and so was planning for suicide. She began to sell her belongings, got rid of some of her things, and this past weekend mailed her credentials and keys back to her place of employment telling them that she was resigning immediately. She also sent a letter to her best friend who ended the relationship in October, saying that she would be receiving a check in the next week or 2 and that her father would pay the friend the money owed (the friend had lent her money for her down payment). This alarmed the friends who called can help who then sent the police to her apartment to do a wellness check. At that point, the patient is documented to have said that she has made several attempts including carbon monoxide, overdose, putting a bag over her head and overdosing on Tylenol and melatonin in the recent days past. At the time I see the patient, she is lying in bed in a darkened room. She arouses to verbal and comes to the office willingly. She is alert and cooperative. She indicates that her mood has been severely depressed saying "I do not want to live anymore". She says that she has not cared about work for some time, saying "my heart was not in it". Her sleep is "all over the place" describing that she has some nights to restless to sleep and other nights sleep is "hard". Her appetite has been "pretty regular". She denies significant anxiety saying the depression is more prevalent but that sometimes she has "circling thoughts". Her energy has been variable, at times active doing yard work as a means of coping, and other times remaining on the couch to avoid having to deal with people. She denies any symptoms of thought disorder, denies auditory or visual hallucinations. She denies symptoms of eating disorder or self-injurious behaviors. She denies symptoms that would be congruent with a bipolar disorder. Hospital Course (1) Major depressive disorder, recurrent severe without psychotic features 01/01 - Restart Zoloft 50 mg. daily and Wellbutrin XL 150 mg daily - Recommend follow up with a psychiatric prescriber - Recommend return to therapy - Q 15 min checks for safety - Encourage participation in group and individual counseling - Explore the diagnosis of Borderline Personality Disorder - Family meeting if indicated 01/02 -Continue sertraline 50 mg daily and bupropion XL 150 mg daily, monitor diarrhea as it may be a side effect. Encourage patient to take medications with food. -Refer for outpatient therapy and psychiatric care. -Explore options for a family meeting. -Safety planning: Patient states that the police brought in her stockpile of medications; we will need to determine whether there are excess medications that need to be disposed of, and may return a limited supply to her at discharge. 01/03 - Increased Zoloft to 100 mg. daily - Continue to explore healthy coping strategies 01/04 - Continue Zoloft 100mg and Wellbutrin 150mg 01/05 - increase wellbutrin XL to 300mg po qam tomorrow. risks and benefits reviewed. 01/06 -Again describing slow improvement in mood and clarity of thinking. Continue medication regimen as above. -Suggested she consider mood charting as outpatient 01/07 - Continue Zoloft 100mg and Wellbutrin 300mg daily - Aftercare in the [facility], as she is planning to stay locally 01/09 -Continue current medications, groups, and safety/discharge planning. Patient continues to be unable to contract for safety outside of the hospital, but is working on plans to increase safety (is going to ask her friend to remove her OTC meds, scarves, and a pull-up bar from her apartment prior to discharge, and another friend to stay with her after discharge). 01/10 - Making arrangements with friends and family for a safe living environment post discharge - Is considering returning to her old job until she is able to find a more fulfilling one. (2) Cluster B personality disorder in adult 01/01 - Patient with significant relationship problems, given her history - Explore with the patient Risk Factors Assessment : Yes /single/: Yes Higher / Fall in social status: No Health problems: No Mental Health Diagnoses: Yes Substance use disorders: No Family history of suicide: No Previous psychiatric stay: Yes Hopelessness: Yes Smoker: No Protective Factors Assessment Muslim beliefs: Yes : No Responsible for young children: No Employed: No Stable relationships: No Supportive family: No Day of Discharge Assessment COURSE OF HOSPITALIZATION: 37-year-old female admitted voluntarily after friends called Kiki for a wellness check on the patient. A lengthy suicide note was found and patient had admitted to several suicide attempts over the preceding days. She also reported impulsively quitting her job. Pt was initially very hopeless, but agreeable to restarting her medications. Pt was titrated to her previous doses of Wellbutrin XL 300mg and Zoloft 100mg daily. Pt reported her mood had been improving slightly, but she was continuing to experiences hopelessness, lack of purpose, and ongoing SI. She also has a history of [place] II pathology which has caused strain in relationships in the past. Pt recognized need for concrete safety plan and was able to engage staff over the course of her hospitalization in creating ways to deal with her impulsivity and other concerns. Patient has engaged in group and recreational therapies during admission, and has completed a safety plan prior to discharge which was personally reviewed by this provider. DAY OF DISCHARGE ASSESSMENT: Pt's case was reviewed and discussed during treatment team. Staff shared that the patient had a 5-page note she requested to be discussed during the meeting, which was completed. Staff is planning to assist with creating an adequate safety plan per patient request. Pt was seen today to assess readiness for discharge. We reviewed her concerns based on the papers shared in treatment team. Pt was able to identify "red flags" of loneliness including: isolating, pulling away, staying in bed longer, taking more melatonin, and having surface- level conversations. Discussed concrete ways the patient could monitor these. Discussed using a mood tracking neri ([employer]) and went through the features of the neri together. Pt feels this will be beneficial for her. PRN medications were offered as another tool to combat "red flags". Pt is agreeable and plans to have her friend, Ashlee, supply her with 1-week of medications at a time to prevent abuse of sleep-aids - another "red flag" for the patient. Other concrete plans were reviewed. Pt given time to work on safety plan with staff to ensure she felt comfortable with the arrangements. She was able to secure transportation and is "nervous", but agreeable to discharge today. Based on review of the patient's records and presentation at this encounter, the patient appears appropriate for discharge today. Transition of care record was reviewed with the patient. Pt was encouraged to continue to take medications as prescribed until recommended to stop by another prescriber. The patient presented as alert and cooperative. The patient was casually dressed and groomed. Eye contact was fair. No psychomotor restlessness or agitation was noted. Speech was normal in rate, rhythm, and volume. Affect was mood congruent. The patients mood appeared blunted. Thought processes were clear, coherent and goal directed without evidence of loose associations or flight of ideas. Thought content/perception was reality based without delusions. The patient denied suicidal and homicidal ideation. The patient denied hallucinations and did not appear to be responding to internal stimuli. Cognition was grossly intact with orientation to person, place and time. Fund of Knowledge/Intelligence were consistent with level of education. Insight and Judgement were fair. Laboratory Refer to printed laboratory reports Test 12/31/17 16:40 12/31/17 17:31 12/31/17 18:55 Urine Color DK YELLOW Urine Appearance CLOUDY Urine pH 5.0 Urine Specific [place] 1.034 Urine Protein TRACE Urine Glucose (UA) NEG Urine Ketones TRACE Urine Occult Blood 2+ Urine Nitrite NEG Urine Bilirubin NEG Urine Urobilinogen NEG Urine Leukocyte Esterase NEG Urine WBC (Auto) 1-5 Urine RBC (Auto) 0-4 Urine Hyaline Casts (Auto) 5-10 Urine Epithelial Cells (Auto) >30 Urine Bacteria (Auto) NEG Urine Crystals CALCIUM OXALATE Urine Test NEG Urine Synthetic Stimulants see note Urine Opiates Screen NEG Urine Methadone, Qualitative NEG Urine Barbiturates NEG Urine Phencyclidine (PCP) Level NEG Ur Amphetamine/Methamphetamine NEG MDMA (Ecstasy) Screen NEG Urine Benzodiazepines Screen NEG Urine Cocaine Metabolite NEG Cannabinoids Comment see note Urine Synthetic Cannabinoids NEGATIVE Ur Synthetic Cannabinoids Confirm Urine Marijuana (THC) NEG White Blood Count 5.23 Red Blood Count 4.88 Hemoglobin 14.5 Hematocrit 43.8 Mean Corpuscular Volume 89.8 Mean Corpuscular Hemoglobin 29.7 Mean Corpuscular Hemoglobin Concent 33.1 Platelet Count 297 Mean Platelet Volume 10.8 Neutrophils (%) (Auto) 67.5 Lymphocytes (%) (Auto) 22.2 Monocytes (%) (Auto) 8.6 Eosinophils (%) (Auto) 1.1 Basophils (%) (Auto) 0.4 Neutrophils # (Auto) 3.53 Lymphocytes # (Auto) 1.16 Monocytes # (Auto) 0.45 Eosinophils # (Auto) 0.06 Basophils # (Auto) 0.02 RDW Standard Deviation 40.8 RDW Coefficient of Variation 12.4 Immature Granulocyte % (Auto) 0.2 Immature Granulocyte # (Auto) 0.01 Sodium Level 140 Potassium Level 3.7 Chloride Level 107 Carbon Dioxide Level 26 Anion Gap 7.0 Blood Urea Nitrogen 16 Creatinine 1.16 Est Creatinine Clear Calc Drug Dose 69.2 Estimated GFR () 70.6 Estimated GFR (Non- 61.0 BUN/Creatinine Ratio 14.1 Random Glucose 85 Calcium Level 8.9 Total Bilirubin 0.6 Direct Bilirubin 0.2 Aspartate Amino Transferase (AST) 12 Alanine Aminotransferase (ALT) 17 Alkaline Phosphatase 62 Total Protein 7.5 Albumin 4.2 Thyroid Stimulating Hormone (TSH) 1.890 Salicylates Level < 1.7 Acetaminophen Level 34 26 Ethyl Alcohol mg/dL < 3.0 Total Time Total Time Spent (min): Greater than 30 minutes Total Time Included: examination of the patient, discharge planning, medication reconciliation, communication with other providers Transition of Care Transition of care record: was reviewed with the patient Tobacco Cessation at Discharge Smoking Status: Never Smoker FDA approved Prescription: non-smoker
== END 2018-01-11 14:10 | disposition home or self-care (01) | DRG 885 ==
LOC: EDBD 16:34 → C.EDA 16:35 → C.MHU 20:25
PROVIDERS: ADMIT Psychiatry & Neurology Child & Adolescent Psychiatry; ATTEND Psychiatry & Neurology Psychiatry
DX: F33.2 Major depressive disorder, recurrent severe without psychotic features (principal); R45.851 Suicidal ideations; F60.89 Other specific personality disorders; Z88.2 Allergy status to sulfonamides; Z83.3 Family history of diabetes mellitus; Z80.3 Family history of malignant neoplasm of breast; Z82.49 Family history of ischemic heart disease and other diseases of the circulatory system; Z84.1 Family history of disorders of kidney and ureter; Z81.8 Family history of other mental and behavioral disorders; Z81.3 Family history of other psychoactive substance abuse and dependence